=== PATIENT | female | born 1935 | race Caucasian/White ===

== ENCOUNTER 2017-07-20 14:13 | Emergency (ER) | payer OTHER ==
[~2017-07-20] VITALS: Ht 172.7 cm; Wt 59.0 kg
[~2017-07-20 14:13] MED LIST: ALPR.25 PO; AMLO5 PO; Amoxicillin500 MG PO; CEFP200 PO; CEPH500 PO; CITRACAL + D M1 EACH PO; CLON.5 PO; CONEST.3; FEXO60 PO; FLUSAL115 IH; HYDCHL25; HYDHCL25 PO; Keflex500 MG PO; LISHYD2012 PO; LISHYD2025 PO; LISI20 PO; LOPE2C PO; LOSA50 PO; METO50ER PO; NEOPOLDEXS BOTHEYES; NITR100CA PO; PANT40 PO; POTASSIUM CHLO20 MEQ PO; POTASSIUM99 M1; POTCHL20ER PO; PRED20 PO; Pyridium200 MG PO; TRAACE PO
[2017-07-20 14:51] LABS: Source, Urine Catheter
[2017-07-20 15:02] LABS: Appearance, Urine Cloudy (Clear); Blood, Urine 5+ (Neg); Color, Urine Amber (P-Yellow); Glucose Qualitative, Urine Neg (Neg); Ketones, Urine 1+ (Neg); Leukocyte Esterase, Urine 1+ (Neg); Nitrite, Urine Neg (Neg); Protein, Urine 2+ (Neg); Urobilinogen, Urine 3+ (Normal)
[2017-07-20 15:06] LABS: BASOPHILS ABSOLUTE AUTO 0.03 K/mm3 (0.00-0.23); BASOPHILS PERCENT AUTO 0 % (0-2); EOSINOPHILS ABSOLUTE AUTO 0.08 K/mm3 (0.00-0.68); EOSINOPHILS PERCENT AUTO 1 % (0-6); Hemoglobin 10.3 g/dL (11.5-16.0); IMMATURE GRAN ABSOLUTE AUTO 0.02 K/mm3 (0.00-0.10); IMMATURE GRAN PERCENT AUTO 0 % (0-1); LYMPHOCYTES ABSOLUTE AUTO 2.97 K/mm3 (0.84-5.20); LYMPHOCYTES PERCENT AUTO 28 % (21-46); MONOCYTES ABSOLUTE AUTO 1.38 K/mm3 (0.16-1.47); MONOCYTES PERCENT AUTO 13 % (4-13); Mean Corpuscular HGB 36.8 pg (26.0-34.0); Mean Corpuscular HGB Conc 34.3 g/dL (31.5-36.5); Mean Corpuscular Volume 107 fL (80-100); Mean Platelet Volume 9.5 fL (9.1-12.4); NEUTROPHILS ABSOLUTE AUTO 6.15 K/mm3 (1.96-9.15); NEUTROPHILS PERCENT AUTO 58 % (41-73); Platelet Count 244 K/mm3 (150-400); RDW Standard Deviation 54.4 fL (35.1-46.3); White Blood Cell Count 10.63 K/mm3 (4.00-11.30)
[2017-07-20 15:16] LABS: Bilirubin, Urine 2+ (Neg)
[2017-07-20 15:20] LABS: Bacteria Many /hpf; Hyaline Casts 0-2 /lpf (0-2); Squamous Epithelial Cells Few /hpf (Few); White Blood Cells, Urine 0-2 /hpf (0-5)
[2017-07-20 15:22] LABS: Albumin, Blood 1.9 g/dL (3.4-5.0); Albumin/Globulin Ratio 0.5 (0.8-1.8); Bilirubin, Total 3.2 mg/dL (0.1-1.0); Calcium, Blood 6.6 mg/dL (8.5-10.1); Creatinine, Blood 1.79 mg/dL (0.40-1.00); Total Protein, Blood 5.9 g/dL (6.4-8.2)
== END 2017-07-20 17:18 | disposition home or self-care (01) ==
LOC: ER 14:13
PROVIDERS: Emergency Medicine
DX: N19 Unspecified kidney failure (principal); I10 Essential (primary) hypertension; Z88.5 Allergy status to narcotic agent; Z79.899 Other long term (current) drug therapy; Z90.49 Acquired absence of other specified parts of digestive tract; Z90.710 Acquired absence of both cervix and uterus
CPT/HCPCS: 36415; 71046; 80053; 81001; 85025; 87086; 93005; 93010; 96360; 99283; J7030; P9612

== ENCOUNTER → 2017-07-31 | Outpatient (CLI) | payer OTHER ==
[~2017-07-31] MED LIST changes: +AMLO5; +Abilify2 MG; +CEFP200; +CIPR500; +CYAN500 PO; +HYDACE25S PR; +HYDCOR2.5C PR; +HYDR25SUP PR; +Hair, Skin & N1 EACH PO; +LOPE2C; +LOSA50; +METR500; +Miralax17 GM PO; +NEOPOLDEXS; +OMEPRAZOLE DR 20 MG; +ONDA4; +PARO10; +POTCHL20ER; +Pantoprazole So40 MG; +Pyridium200 MG; +TEMA15; +Ultram50 MG PO; +Zofran Odt4 MG PO
[2017-07-31 17:40] LABS: BASOPHILS ABSOLUTE AUTO 0.14 K/mm3 (0.00-0.23); BASOPHILS PERCENT AUTO 1 % (0-2); EOSINOPHILS ABSOLUTE AUTO 0.08 K/mm3 (0.00-0.68); EOSINOPHILS PERCENT AUTO 1 % (0-6); Hematocrit 38.2 % (33.0-51.0); Hemoglobin 12.8 g/dL (11.5-16.0); IMMATURE GRAN ABSOLUTE AUTO 0.04 K/mm3 (0.00-0.10); IMMATURE GRAN PERCENT AUTO 0 % (0-1); LYMPHOCYTES ABSOLUTE AUTO 3.77 K/mm3 (0.84-5.20); LYMPHOCYTES PERCENT AUTO 33 % (21-46); MONOCYTES ABSOLUTE AUTO 0.87 K/mm3 (0.16-1.47); MONOCYTES PERCENT AUTO 8 % (4-13); Mean Corpuscular HGB 37.2 pg (26.0-34.0); Mean Corpuscular HGB Conc 33.5 g/dL (31.5-36.5); Mean Platelet Volume 9.9 fL (9.1-12.4); NEUTROPHILS ABSOLUTE AUTO 6.71 K/mm3 (1.96-9.15); NEUTROPHILS PERCENT AUTO 58 % (41-73); Platelet Count 353 K/mm3 (150-400); RDW Coefficient Variation 15.7 % (11.7-14.2); RDW Standard Deviation 63.5 fL (35.1-46.3); Red Blood Cell Count 3.44 M/mm3 (3.80-5.20); White Blood Cell Count 11.61 K/mm3 (4.00-11.30)
[2017-07-31 17:53] LABS: Mean Corpuscular Volume 111 fL (80-100)
[2017-07-31 17:54] LABS: Albumin, Blood 1.9 g/dL (3.4-5.0); Albumin/Globulin Ratio 0.4 (0.8-1.8); Bilirubin, Total 3.1 mg/dL (0.1-1.0); Bun/Creatinine Ratio 5.6 (12.0-20.0); Calcium, Blood 7.3 mg/dL (8.5-10.1); Creatinine, Blood 1.24 mg/dL (0.40-1.00); Globulin, Blood 4.8 g/dL (2.2-4.0); Potassium, Blood 3.2 mmol/L (3.5-5.5); Total Protein, Blood 6.7 g/dL (6.4-8.2)
== END | disposition home or self-care (01) ==
LOC: LAB EV 17:37
PROVIDERS: Physician Assistant
DX: E86.0 Dehydration (principal)
CPT/HCPCS: 80053; 85025

== ENCOUNTER 2017-08-01 16:03 | Emergency (ER) | payer OTHER ==
[~2017-08-01] VITALS: Ht 172.7 cm; Wt 48.1 kg
[~2017-08-01 16:03] MED LIST changes: -AMLO5; -Abilify2 MG; -CEFP200; -CIPR500; -CYAN500 PO; -HYDACE25S PR; -HYDCOR2.5C PR; -HYDR25SUP PR; -Hair, Skin & N1 EACH PO; -LOPE2C; -LOSA50; -METR500; -Miralax17 GM PO; -NEOPOLDEXS; -OMEPRAZOLE DR 20 MG; -ONDA4; -PARO10; -POTCHL20ER; -Pantoprazole So40 MG; -Pyridium200 MG; -TEMA15; -Ultram50 MG PO; -Zofran Odt4 MG PO
[2017-08-01 17:51] LABS: Source, Urine Catheter
[2017-08-01 18:17] LABS: Appearance, Urine Cloudy (Clear); Blood, Urine 4+ (Neg); Color, Urine Amber (P-Yellow); Glucose Qualitative, Urine Neg (Neg); Ketones, Urine 1+ (Neg); Leukocyte Esterase, Urine 3+ (Neg); Nitrite, Urine Pos (Neg); Protein, Urine 3+ (Neg); Specific Gravity, Urine 1.015 (1.003-1.022); Urobilinogen, Urine 3+ (Normal)
[2017-08-01 18:45] LABS: Bilirubin, Urine 2+ (Neg)
[2017-08-01 18:46] LABS: White Blood Cells, Urine TNTC /hpf (0-5)
[2017-08-01 18:47] LABS: Bacteria Many /hpf; Squamous Epithelial Cells Few /hpf (Few)
== END 2017-08-01 19:56 | disposition home or self-care (01) ==
LOC: ER 16:03
PROVIDERS: Nurse Practitioner Family
DX: N39.0 Urinary tract infection, site not specified (principal); I10 Essential (primary) hypertension; Z88.5 Allergy status to narcotic agent; Z90.49 Acquired absence of other specified parts of digestive tract; Z90.710 Acquired absence of both cervix and uterus
CPT/HCPCS: 36415; 81001; 87077; 87086; 87186; 96360; 99284; J7030; P9612

== ENCOUNTER 2017-09-25 14:06 | Emergency (ER) | payer OTHER ==
[~2017-09-25] VITALS: Ht 172.7 cm; Wt 68.0 kg
[2017-09-25] MEDS ORDERED: Abilify2 MG (14:43)
[2017-09-25] MEDS ORDERED: OMEPRAZOLE DR 20 MG (14:43)
[2017-09-25] MEDS ORDERED: POTCHL20ER (14:44)
[2017-09-25] MEDS ORDERED: PARO10 (14:44)
[2017-09-25] MEDS ORDERED: CEFP200 (14:44)
[2017-09-25] MEDS ORDERED: METR500 (14:44)
[2017-09-25] MEDS ORDERED: ONDA4 (14:44)
[2017-09-25] MEDS ORDERED: LOSA50 (14:44)
[2017-09-25] MEDS ORDERED: TEMA15 (14:44)
[2017-09-25] MEDS ORDERED: NEOPOLDEXS (14:44)
[2017-09-25] MEDS ORDERED: Pyridium200 MG (14:44)
[2017-09-25] MEDS ORDERED: Pantoprazole So40 MG (14:44)
[2017-09-25] MEDS ORDERED: LOPE2C (14:44)
[2017-09-25] MEDS ORDERED: AMLO5 (14:44)
[2017-09-25] MEDS ORDERED: CIPR500 (14:44)
[2017-09-25] MEDS ORDERED: HYDR25SUP PR (14:55)
[2017-09-25] MEDS ORDERED: Ultram50 MG PO (15:18)
== END 2017-09-25 15:03 | disposition home or self-care (01) ==
LOC: ER 14:06
DX: K64.9 Unspecified hemorrhoids (principal); I10 Essential (primary) hypertension
CPT/HCPCS: 99283

== ENCOUNTER 2017-10-06 12:02 | Emergency (ER) | payer OTHER ==
[~2017-10-06] VITALS: Ht 177.8 cm; Wt 45.4 kg
[~2017-10-06 12:02] MED LIST changes: +AMLO5; +Abilify2 MG; +CEFP200; +CIPR500; +HYDR25SUP PR; +LOPE2C; +LOSA50; +METR500; +NEOPOLDEXS; +OMEPRAZOLE DR 20 MG; +ONDA4; +PARO10; +POTCHL20ER; +Pantoprazole So40 MG; +Pyridium200 MG; +TEMA15; +Ultram50 MG PO
[2017-10-06] MEDS ORDERED: Hair, Skin & N1 EACH PO (15:47)
[2017-10-06] MEDS ORDERED: CYAN500 PO (15:48)
[2017-10-06 16:15] LABS: Calcium, Ionized (POC) 0.78 mmol/L (1.10-1.46); Chloride (POC) 105 mmol/L (98-108); Creatinine (POC) 0.5 mg/dL (0.6-1.0); Glucose (ISTAT POC) 161 mg/dL (70-99); Hemoglobin (POC) 12.2 g/dL (12.0-16.0); Sodium (POC) 139 mmol/L (135-148); Total CO2 (POC) 26 mmol/L (21-32)
[2017-10-06] MEDS ORDERED: Miralax17 GM PO (17:41)
[2017-10-06] MEDS ORDERED: HYDCOR2.5C PR (17:41)
[2017-10-06] MEDS ORDERED: HYDACE25S PR (17:42)
== END 2017-10-06 18:03 | disposition home or self-care (01) ==
LOC: ER 12:02
PROVIDERS: Physician Assistant
DX: K64.4 Residual hemorrhoidal skin tags (principal); K59.00 Constipation, unspecified; Z88.5 Allergy status to narcotic agent; Z79.899 Other long term (current) drug therapy; I10 Essential (primary) hypertension
CPT/HCPCS: 36415; 72193; 80047; 85014; 99284; Q9967

== ENCOUNTER 2017-12-09 18:04 | Emergency (ER) | payer OTHER ==
[~2017-12-09] VITALS: Ht 172.7 cm; Wt 68.0 kg
[~2017-12-09 18:04] MED LIST changes: +CYAN500 PO; +HYDACE25S PR; +HYDCOR2.5C PR; +Hair, Skin & N1 EACH PO; +Miralax17 GM PO
[2017-12-09 18:50] LABS: BASOPHILS ABSOLUTE AUTO 0.06 K/mm3 (0.00-0.23); BASOPHILS PERCENT AUTO 1 % (0-2); EOSINOPHILS ABSOLUTE AUTO 0.09 K/mm3 (0.00-0.68); EOSINOPHILS PERCENT AUTO 1 % (0-6); Hematocrit 32.6 % (33.0-51.0); Hemoglobin 10.7 g/dL (11.5-16.0); IMMATURE GRAN ABSOLUTE AUTO 0.03 K/mm3 (0.00-0.10); IMMATURE GRAN PERCENT AUTO 0 % (0-1); LYMPHOCYTES ABSOLUTE AUTO 2.49 K/mm3 (0.84-5.20); LYMPHOCYTES PERCENT AUTO 24 % (21-46); MONOCYTES ABSOLUTE AUTO 0.99 K/mm3 (0.16-1.47); MONOCYTES PERCENT AUTO 10 % (4-13); Mean Corpuscular HGB 32.9 pg (26.0-34.0); Mean Corpuscular HGB Conc 32.8 g/dL (31.5-36.5); Mean Corpuscular Volume 100 fL (80-100); Mean Platelet Volume 9.6 fL (9.1-12.4); NEUTROPHILS ABSOLUTE AUTO 6.63 K/mm3 (1.96-9.15); NEUTROPHILS PERCENT AUTO 64 % (41-73); Platelet Count 380 K/mm3 (150-400); RDW Coefficient Variation 15.7 % (11.7-14.2); RDW Standard Deviation 57.6 fL (35.1-46.3); Red Blood Cell Count 3.25 M/mm3 (3.80-5.20); White Blood Cell Count 10.29 K/mm3 (4.00-11.30)
[2017-12-09 19:06] LABS: Alanine Aminotransfer (ALT/SGP 9 U/L (12-78); Albumin, Blood 1.1 g/dL (3.4-5.0); Albumin/Globulin Ratio 0.2 (0.8-1.8); Alk Phos 113 U/L (50-136); Anion Gap 10 mmol/L (6-16); Aspartate Aminotrans (AST/SGOT 28 U/L (12-37); Bilirubin, Total 0.4 mg/dL (0.1-1.0); Blood Urea Nitrogen 9 mg/dL (8-24); Bun/Creatinine Ratio 15.6 (12.0-20.0); CO2, Blood 24 mmol/L (21-32); Calcium, Blood 7.7 mg/dL (8.5-10.1); Chloride, Blood 108 mmol/L (98-108); Creatinine, Blood 0.58 mg/dL (0.40-1.00); Glomerular Filtration Rate >60 (60-); Glucose, Blood 118 mg/dL (70-99); Potassium, Blood 3.1 mmol/L (3.5-5.5); Sodium, Blood 142 mmol/L (136-145); Total Protein, Blood 6.1 g/dL (6.4-8.2)
[2017-12-09] MEDS ORDERED: Zofran Odt4 MG PO (20:03)
== END 2017-12-09 20:25 | disposition home or self-care (01) ==
LOC: ER 18:04
PROVIDERS: Emergency Medicine
DX: E87.6 Hypokalemia (principal); R64 Cachexia; Z68.22 Body mass index [BMI] 22.0-22.9, adult; E83.42 Hypomagnesemia; E83.51 Hypocalcemia; K52.9 Noninfective gastroenteritis and colitis, unspecified; Z88.5 Allergy status to narcotic agent; I10 Essential (primary) hypertension
CPT/HCPCS: 36415; 71046; 80053; 83690; 85025; 93005; 93010

== ENCOUNTER 2019-01-21 19:41 | Emergency (ER) | payer OTHER ==
[~2019-01-21] VITALS: Ht 152.4 cm; Wt 52.2 kg
[~2019-01-21 19:41] MED LIST changes: +Zofran Odt4 MG PO
[2019-01-21 20:22] LABS: Source, Urine Voided
[2019-01-21 20:26] LABS: Bilirubin, Urine Neg (Neg); Blood, Urine 3+ (Neg); Glucose Qualitative, Urine Neg (Neg); Ketones, Urine Neg (Neg); Leukocyte Esterase, Urine 3+ (Neg); Nitrite, Urine Neg (Neg); Protein, Urine 2+ (Neg); Specific Gravity, Urine 1.005 (1.003-1.022); Urobilinogen, Urine NORM (Normal)
[2019-01-21 20:32] LABS: Appearance, Urine Cloudy (Clear); Color, Urine Yellow (P-Yellow)
[2019-01-21 20:33] LABS: Bacteria Many /hpf; Red Blood Cells, Urine 50-100 /hpf (0-2); Squamous Epithelial Cells Few /hpf (Few); White Blood Cells, Urine TNTC /hpf (0-5)
[2019-01-21 20:44] LABS: BASOPHILS ABSOLUTE AUTO 0.08 K/mm3 (0.00-0.23); BASOPHILS PERCENT AUTO 1 % (0-2); EOSINOPHILS ABSOLUTE AUTO 0.11 K/mm3 (0.00-0.68); EOSINOPHILS PERCENT AUTO 1 % (0-6); Hematocrit 40.5 % (33.0-51.0); Hemoglobin 14.3 g/dL (11.5-16.0); IMMATURE GRAN ABSOLUTE AUTO 0.02 K/mm3 (0.00-0.10); IMMATURE GRAN PERCENT AUTO 0 % (0-1); LYMPHOCYTES ABSOLUTE AUTO 4.88 K/mm3 (0.84-5.20); LYMPHOCYTES PERCENT AUTO 50 % (21-46); MONOCYTES ABSOLUTE AUTO 0.61 K/mm3 (0.16-1.47); MONOCYTES PERCENT AUTO 6 % (4-13); Mean Corpuscular HGB 36.9 pg (26.0-34.0); Mean Corpuscular HGB Conc 35.3 g/dL (31.5-36.5); Mean Corpuscular Volume 104 fL (80-100); Mean Platelet Volume 8.8 fL (9.1-12.4); NEUTROPHILS ABSOLUTE AUTO 4.16 K/mm3 (1.96-9.15); NEUTROPHILS PERCENT AUTO 42 % (41-73); Platelet Count 350 K/mm3 (150-400); RDW Coefficient Variation 15.9 % (11.7-14.2); RDW Standard Deviation 61.7 fL (35.1-46.3); Red Blood Cell Count 3.88 M/mm3 (3.80-5.20); White Blood Cell Count 9.86 K/mm3 (4.00-11.30)
[2019-01-21 21:08] LABS: Magnesium, Blood 1.6 mg/dL (1.6-2.4)
[2019-01-21 21:09] LABS: Alanine Aminotransfer (ALT/SGP 29 U/L (12-78); Albumin, Blood 3.1 g/dL (3.4-5.0); Albumin/Globulin Ratio 0.7 (0.8-1.8); Alk Phos 242 U/L (50-136); Anion Gap 10 mmol/L (6-16); Aspartate Aminotrans (AST/SGOT 117 U/L (12-37); Bilirubin, Total 0.4 mg/dL (0.1-1.0); Blood Urea Nitrogen 5 mg/dL (8-24); Bun/Creatinine Ratio 9.9 (12.0-20.0); CO2, Blood 25 mmol/L (21-32); Calcium, Blood 8.2 mg/dL (8.5-10.1); Chloride, Blood 98 mmol/L (98-108); Globulin, Blood 4.2 g/dL (2.2-4.0); Glomerular Filtration Rate >60 (60-); Glucose, Blood 107 mg/dL (70-99); Potassium, Blood 2.9 mmol/L (3.5-5.5); Sodium, Blood 133 mmol/L (136-145); Total Protein, Blood 7.3 g/dL (6.4-8.2)
[2019-01-21 21:12] LABS: International Normalized Ratio 1.05; Prothrombin Time Results 11.1 Sec (9.7-11.5)
[2019-01-21 21:25] LABS: Ethanol (Alcohol), Blood, Med 294 mg/dL
[2019-01-21] MEDS ORDERED: K-Dur10 MEQ PO (23:06)
[2019-01-21 23:12] LABS: Campylobacter Sp Not Detected (NOT DETECT); Plesiomonas Shigelloides Not Detected (NOT DETECT); Salmonella Sp Not Detected (NOT DETECT); Vibrio Cholerae Not Detected (NOT DETECT); Vibrio Sp Not Detected (NOT DETECT); Yersinia Enterocolitica Not Detected (NOT DETECT)
[2019-01-21 23:13] LABS: Adenovirus F 40/41 Not Detected (NOT DETECT); Astrovirus Not Detected (NOT DETECT); Cryptosporidium Not Detected (NOT DETECT); Cyclospora Cayetanensis Not Detected (NOT DETECT); E. Coli O157 Not Detected (NOT DETECT); Entamoeba Histolytica Not Detected (NOT DETECT); Enteroaggregative E. coli-EAEC Not Detected (NOT DETECT); Enteropathogenic E. coli-EPEC Not Detected (NOT DETECT); Enterotoxigenic E. coli-ETEC Not Detected (NOT DETECT); Giardia Lamblia Not Detected (NOT DETECT); Norovirus GI/GII Not Detected (NOT DETECT); Rotavirus A Not Detected (NOT DETECT); Sapovirus Not Detected (NOT DETECT); Shiga Toxin-prod E. coli-STEC Not Detected (NOT DETECT); Shigella/Enteroin E. coli-EIEC Not Detected (NOT DETECT)
[2019-05-10] MEDS ORDERED: CEPH500 PO ×2 (23:13→23:26)
[2019-05-10] MEDS ORDERED: K-Dur 20 meq T20 MEQ PO (23:13)
[2019-05-10] MEDS ORDERED: Kaon-Cl40 MEQ/15 PO (23:24)
== END 2019-01-21 23:35 | disposition home or self-care (01) ==
LOC: ER 19:41
PROVIDERS: Emergency Medicine
DX: F10.129 Alcohol abuse with intoxication, unspecified (principal); Y90.8 Blood alcohol level of 240 mg/100 ml or more; R53.1 Weakness; E87.6 Hypokalemia; R19.7 Diarrhea, unspecified; I10 Essential (primary) hypertension; Z88.5 Allergy status to narcotic agent
CPT/HCPCS: 0097U; 70450; 71045; 80053; 81001; 82140; 83735; 85025; 85610; 87077; 87086; 87186; 93005; 93010; 99285-25; G0480; J3411; J3475; J7042

== ENCOUNTER 2019-02-20 08:43 | Inpatient (IN) | payer OTHER ==
[~2019-02-20] VITALS: Ht 172.7 cm; Wt 61.0 kg
[~2019-02-20 08:43] MED LIST changes: +K-Dur10 MEQ PO
[2019-02-20 09:10] LABS: Chloride (POC) 98 mmol/L (98-108); Creatinine (POC) 1.5 mg/dL (0.6-1.0); Glucose (ISTAT POC) 46 mg/dL (70-99); Hemoglobin (POC) 16.3 g/dL (12.0-16.0); Potassium (POC) 4.1 mmol/L (3.5-5.5); Sodium (POC) 135 mmol/L (135-148); Total CO2 (POC) 13 mmol/L (21-32)
[2019-02-20 09:38] LABS: Hematocrit 45.7 % (33.0-51.0); Hemoglobin 14.5 g/dL (11.5-16.0); Mean Corpuscular HGB 38.5 pg (26.0-34.0); Mean Corpuscular HGB Conc 31.7 g/dL (31.5-36.5); Mean Corpuscular Volume 121 fL (80-100); Mean Platelet Volume 9.9 fL (9.1-12.4); Platelet Count 327 K/mm3 (150-400); RDW Standard Deviation 68.7 fL (35.1-46.3); Red Blood Cell Count 3.77 M/mm3 (3.80-5.20); White Blood Cell Count 22.66 K/mm3 (4.00-11.30)
[2019-02-20 09:56] LABS: BAND PERCENT MAN 8 % (0-8); BASOPHILS ABSOLUTE MAN 0.22 K/mm3 (0.00-0.23); BASOPHILS PERCENT MAN 1 % (0-2); EOSINOPHILS PERCENT MAN 0 % (0-6); LYMPHOCYTES ABSOLUTE MAN 1.58 K/mm3 (0.84-5.20); LYMPHOCYTES PERCENT MAN 7 % (21-46); MONOCYTES ABSOLUTE MAN 0.22 K/mm3 (0.16-1.47); MONOCYTES PERCENT MAN 1 % (4-13); NEUTROPHILS ABSOLUTE MAN 20.62 K/mm3 (1.96-9.15); SEG NEUTROPHILS PERCENT MAN 83 % (41-73); TOTAL CELLS COUNTED 100
[2019-02-20 10:01] LABS: Free Thyroxine 0.75 ng/dL (0.70-1.60); Troponin I 0.056 ng/mL (0.000-0.040)
[2019-02-20 10:03] LABS: Thyroid Stimulating Hormone 1.15 uIU/mL (0.360-4.800)
[2019-02-20 10:16] LABS: Albumin, Blood 3.4 g/dL (3.4-5.0); Albumin/Globulin Ratio 0.8 (0.8-1.8); Bilirubin, Total 1.6 mg/dL (0.1-1.0); Bun/Creatinine Ratio 8.3 (12.0-20.0); Calcium, Blood 8.6 mg/dL (8.5-10.1); Creatinine, Blood 1.33 mg/dL (0.40-1.00); Globulin, Blood 4.3 g/dL (2.2-4.0); Potassium, Blood 4.6 mmol/L (3.5-5.5); Total Protein, Blood 7.7 g/dL (6.4-8.2)
[2019-02-20 10:32] LABS: Source, Urine Clean Catch
[2019-02-20 10:37] LABS: Bilirubin, Urine Neg (Neg); Blood, Urine 3+ (Neg); Glucose Qualitative, Urine Neg (Neg); Ketones, Urine Neg (Neg); Leukocyte Esterase, Urine Neg (Neg); Nitrite, Urine Neg (Neg); Protein, Urine 1+ (Neg); Specific Gravity, Urine 1.015 (1.003-1.022); Urobilinogen, Urine NORM (Normal)
[2019-02-20 10:46] LABS: Appearance, Urine Clear (Clear); Color, Urine Yellow (P-Yellow)
[2019-02-20 10:47] LABS: Bacteria Not Seen /hpf; Mucus Light (0-Heavy); Red Blood Cells, Urine 0-2 /hpf (0-2); Squamous Epithelial Cells Not Seen /hpf (Few); White Blood Cells, Urine Not Seen /hpf (0-5)
[2019-02-20 10:51] LABS: PCO2 Arterial 23.5 mmHg (35-45); PO2 Arterial 73.1 mmHg (80-100)
[2019-02-20 10:55] LABS: pH Blood Arterial 7.11 (7.35-7.45)
--- NOTE | 2019-02-20 14:00 | NUR ---
INITIAL ASSESSMENT PATIENT ARRIVED TO UNIT AT 1345. PATIENT ALERT AND ORIENTED X 4, HOWEVER SEEMS FORGETFUL AT TIMES. PATIENT SLIGHTLY ANXIOUS. PATIENT CONTINUES TO ASK FOR WATER EVEN THOUGH SHE HAS BEEN INFORMED THAT SHE IS NPO AND WHY IT IS IMPORTANT. PATIENT GIVEN WATER SWABS. PATIENT AFEBRILE. PATIENT COMPLAINS OF SLIGHT SORE THROAT. PATIENT WEAK BUT ABLE TO MOVE ALL EXTREMITIES. PATIENT STATES SHE USES A WALKER AT HOME. DAUGHTER REPORTS THAT PATIENT HAD A RECENT FALL AT HOME. PATIENT SATTING 90% AND GREATER ON 10 L OXYMIZER. LUNGS CLEAR IN UPPER LOBES. CRACKLES NOTED IN LOWER LOBES. PATIENT STATES SHE HAS A MOIST, PRODUCTIVE COUGH BUT DOES NOT KNOW WHAT THE SPUTUM LOOKS LIKE SHE SWALLOWS IT. PATIENT REMOVES O2 AT TIMES; DESATS QUICKLY. PATIENT SOB WITH EXERTION. PATIENT IN ST, HR 120S TO 130S. SBP IN THE 1-TEENS. NO EDEMA NOTED. PATIENT DENIES NAUSEA. ABDOMEN MILDLY DISTENDED, NONTENDER, WITH NORMOACTIVE BS. PATIENT HAD LARGE, LOOSE BM IN ER. PATIENT NPO. NORRIS DRAINING ADALBERTO, CLOUDY COLORED URINE. BLADDER SCAN PERFORMED ABD CT SHOWED THAT NORRIS MAY NOT BE WORKING. NORRIS IS DRAINING AND BLADDER SCAN SHOWED 0 MLS IN BLADDER. SKIN IS FRAGILE AND COOL. PATIENT HAS SCATTERED BRUISES T/O. SCAB NOTED ON NOSE. BLOOD SUGAR OF 246. D10 DRIP DC'D AND SODIUM BICARB 1/2 NS STARTED AT 100 MLS/ HOUR. DR. BOSE STATED TO START NS AT 75 X 1 BAG AFTER SODIUM BICARB INFUSION COMPLETE. PATIENT REPORTS THAT SHE HAS LOST AROUND 80 POUNDS "A FEW WEEKS AGO" AND PATIENT STOPPED EATING. PATIENT LIVES ALONE BUT DOES HAVE RELATIVES IN THE AREA. PATIENT DENIES FREQUENT ALCOHOL USE BUT RECEIVED REPORT THAT SHE DOES DRINK DAILY AND THAT HER DRINKING HAS INCREASED SINCE HER PASSED. PATIENT ORIENTED TO ROOM, UNIT, CALL LIGHT. BED LOW, CALL LIGHT IN REACH. PATIENT'S NEPHEW AND DAUGHTER IN ROOM WITH PATIENT AT THIS TIME.
--- NOTE | 2019-02-20 15:37 | NUR ---
DR. BOSE CALLED TO INFORM ABOUT LACTIC ACID OF 7.9. ALSO INFORMED THAT SBP REMAINS IN THE 80S TO 90S AND HR IN THE 120S. INFORMED THAT LUNGS CLEAR IN UPPER LOBES, WITH CRACKLES IN LOWER LOBES UPON AUSCULTATION. ORDER RECEIVED FOR 500 ML NS BOLUS.
--- NOTE | 2019-02-20 16:39 | NUR ---
500 CC NS BOLUS STARTED FOR SBP 80S TO 90S AND HR IN THE 120S. BLOOD SUGAR OF 228. URINE CULTURE AND RECTAL SWAB SENT TO LAB TO CLEAR PATIENT FROM PAST HISTORY OF ESBL IN URINE. NO COMPLAINTS AT THIS TIME. NO OTHER ACUTE CHANGES TO NOTE ON AT THIS TIME. WILL CONTINUE TO MONITOR.
[2019-02-20 18:00] LABS: Beta-hydroxybutyrate 40.5 mg/dL (0.2-2.8); Bun/Creatinine Ratio 9.9 (12.0-20.0); Creatinine, Blood 1.21 mg/dL (0.40-1.00); Potassium, Blood 3.6 mmol/L (3.5-5.5); Troponin I 0.116 ng/mL (0.000-0.040)
--- NOTE | 2019-02-20 18:00 | NUR ---
DR. BOSE CALL DR. BOSE TO INFORM HIM OF ONGOING SBP'S 80-90'S. ORDERS RECEIVED FOR ADDITIONAL 250ML BOLUS AND PLACE PICC LINE. ALSO RE-CHECK LACTIC ACID 6 HOURS AFTER PREVIOUS LEVEL. PRISCA ODONNELL NOTIFIED TO PLACE PICC LINE.
[2019-02-20 18:14] LABS: Creatine Kinase MB 4.6 ng/mL (0.0-3.6); Creatine Kinase MB Index 1.8 (0.0-4.0)
--- NOTE | 2019-02-20 19:26 | NUR ---
SHIFT SUMMARY PATIENT REMAINED ALERT AND ORIENTED X 4, AFEBRILE. PATIENT STATES THAT SHE IS FEELING QUITE A BIT BETTER. PATIENT IS INDEPENDENT IN BED. RESP WNL. PATIENT HAS REMAINED IN SR TO ST, HR 90S TO LOW 100S. BP HAS REMAINED STABLE. PATIENT CONTINUES TO DENY NAUSEA. WNL. SKIN WNL. INSULIN DRIP CURRENTLY INFUSING AT 4 UNITS/ HOUR, NS REMAINS AT 125 MLS/ HOUR. NO OTHER ACUTE CHANGES TO NOTE ON. FAMILY REMAINS VISITING IN ROOM. BED LOW, CALL LIGHT IN REACH. REPORT HAS BEEN GIVEN TO ASSUMING BUSINESS SYSTEMS ADVISOR NURSE.
--- NOTE | 2019-02-20 19:46 | NUR ---
SHIFT SUMMARY PATIENT REMAINED ALERT AND ORIENTED, HOWEVER FORGETFUL. PATIENT CONTINUED TO ASK FOR WATER, DESPITE BEING EXPLAINED TO THAT SHE IS NPO AT THIS TIME. WATER SWABS REMAINED BEING GIVEN. PATIENT ANXIOUS AT TIMES. PATIENT AFEBRILE. PATIENT REMAINED SATTING 90% AND GREATER ON 10 L OXYMIZER. PATIENT TOOK OFF O2 OCCASIONALLY AND DESATTED QUICKLY. PATIENT CONTINUED TO HAVE MOIST COUGH. PATIENT REMAINED IN ST. HR UP TO 130S. HR DECREASED TO 1-TEENS AFTER MORE FLUIDS GIVEN. SBP 80S TO 90S. 500 CC NS BOLUS, THEN 250 CC BOLUS AND PICC LINE INSERTED. PATIENT HAS HAD NO COMPLAINTS OF NAUSEA. PATIENT DID NOT HAVE BM THIS SHIFT. NORRIS DRAINING ADALBERTO COLORED, CLOUDY URINE. NS TKO FOR ANTIBIOTIC. SODIUM BICARB INFUSING AT 100 MLS/ HOUR. NS AT 75 MLS/ HOUR TO INFUSE WHEN BICARB COMPLETE. URINE CULTURE AND RECTAL SWAB SENT TO CLEAR ESBL. BLOOD SUGARS HAVE REMAINED IN THE 200S. PATIENT HAS NO COMPLAINTS AT THIS TIME. BED LOW, CALL LIGHT IN REACH. REPORT HAS BEEN GIVEN TO ASSUMING METAL CLEANER NURSE.
--- NOTE | 2019-02-20 20:51 | NUR ---
PATIENT RESTING QUIETLY IN BED AWAKENS TO SLIGHT STIMULI, ANSWERING QUESTIONS APPROPRIATELY AND FOLLOWING DIRECTIONS. HYPOTENSION CONTINUES DOCTOR AGSTEN NOTIFIED OF CONTINUED HYPOTENSION, LEVOPHED DRIP ORDERED. PICC LINE PLACED TO RIGHT UPPER ARM AT CHANGE OF SHIFT, OK TO USE LINE PER BELLE COPE, AND DOCTOR JUSTINE.
[2019-02-21 01:50] LABS: Troponin I 0.156 ng/mL (0.000-0.040)
[2019-02-21 02:04] LABS: Creatine Kinase MB Index 1.2 (0.0-4.0)
--- NOTE | 2019-02-21 02:35 | NUR ---
DOCTOR JUSTINE NOTIFIED OF CARDIAC ENZYMES CONTINUE TO RISE. PATIENT HAS NO C/O PAIN OR PRESSURE. LEVOPHED DRIP CONTINUES AT 5 MCG. PLAN TO RECHECK CARDIAC ENZYMES AGAIN IN 8HR.
[2019-02-21 04:31] LABS: Hematocrit 32.5 % (33.0-51.0); Hemoglobin 11.4 g/dL (11.5-16.0); Mean Corpuscular HGB 38.4 pg (26.0-34.0); Mean Corpuscular HGB Conc 35.1 g/dL (31.5-36.5); Mean Platelet Volume 9.6 fL (9.1-12.4); Platelet Count 199 K/mm3 (150-400); RDW Coefficient Variation 14.4 % (11.7-14.2); Red Blood Cell Count 2.97 M/mm3 (3.80-5.20); White Blood Cell Count 23.79 K/mm3 (4.00-11.30)
[2019-02-21 04:36] LABS: Mean Corpuscular Volume 109 fL (80-100)
[2019-02-21 05:08] LABS: Albumin, Blood 2.2 g/dL (3.4-5.0); Albumin/Globulin Ratio 0.7 (0.8-1.8); Bilirubin, Total 0.9 mg/dL (0.1-1.0); Bun/Creatinine Ratio 13.4 (12.0-20.0); Calcium, Blood 6.9 mg/dL (8.5-10.1); Creatinine, Blood 0.97 mg/dL (0.40-1.00); Globulin, Blood 3.1 g/dL (2.2-4.0)
[2019-02-21 05:32] LABS: Total Protein, Blood 5.3 g/dL (6.4-8.2)
--- NOTE | 2019-02-21 06:18 | NUR ---
SUMMARY PATIENT RESTING QUIETLY T/O NIGHT, AWAKING EASILY TO SLIGHT STIMULI. NO C/O T/O NIGHT. LEVOPHED TITRATED TO 3 MCG FOR HYPOTENSION. MOIST COUGH CONTINUES, WITH CRACKLES IN BASES. OXYGEN TITRATED DOWN TO 8L/OXY. PATIENT ABLE TO REPOSITION SELF IN BED FOR COMFORT.
--- NOTE | 2019-02-21 09:41 | NUR ---
ECHOCARDIOGRAM COMPLETED
[2019-02-21 09:44] LABS: Troponin I 0.167 ng/mL (0.000-0.040)
--- NOTE | 2019-02-21 09:46 | NUR ---
0730: CARE ASSUMED, ASSESSMENT COMPLETED. PT RESTING IN BED, DENIES PAIN OR C/O. O2 8L/OXYMIZER, SPO2 >95%. LEVO 3MGC, MAP >65, NS 75ML/HR. PT AWAKE, ALERT AND ORIENTED X4, NO CONFUSION NOTED AT THIS TIME. URINE CLEAR YELLOW, NO OBVIOUS SOURCE OF BLEEDING NOTED AT THIS TIME, PT DENIES ABD PAIN/NAUSEA, NO STOOLS. 0930: DR. ROSALES IN TO SEE PT. ECHO DONE, PT TALKED ON PHONE WITH SISTER. CEPACOL COUGH DROP GIVEN PER PT REQUEST FOR SCRATCHY THROAT, FEW ICE CHIPS GIVEN TO WET MOUTH. PT DENIES OTHER NEEDS, IS RESTING IN BED WITH NO C/O, VSS.
--- NOTE | 2019-02-21 10:46 | NUR ---
PT VISITING WITH FAMILY AT BEDSIDE, DENIES PAIN, DIZZINESS, OR FEELING LIGHT HEADED. LEVOPHED REMAINS OFF, MAP 64, WILL CONTINUE TO MONITOR. HR 80'S SINUS, SPO2 98% 8L/OXYMIZER. PT DENIES SOB.
--- NOTE | 2019-02-21 12:16 | NUR ---
DR. BOSE AT BEDSIDE, PT DENIES PAIN OR C/O. TITRATING O2 DOWN ABLE. VS REMAIN STABLE, MAP >65, HR 80'S, LEVO REMAINS OFF PT DENIES C/O, WILL ADVANCE DIET PER ORDERS.
--- NOTE | 2019-02-21 13:41 | NUR ---
NEW ORDERS RECEIVED, I.S. GIVEN TO PT WITH INSTRUCTION, PT USING APPROPRIATELY. NO CONFUSION NOTED THIS SHIFT, PT APPROPRIATE AND COOPERATIVE. PT AWARE OF ORDER FOR SPUTUM CULTURE, WILL ATTEMPT TO COLLECT, CUP LEFT AT BEDSIDE. PT SITTING UP IN BED EATING SOUP AND CRACKERS, DENIES ABD PAIN OR NAUSEA. SPIRITAUL CARE IN TO SEE PT, SON AT BEDSIDE AT THIS TIME. PT'S VSS.
[2019-02-21 14:48] LABS: Adenovirus Not Detected (NOT DETECT); Bordetella pertussis Not Detected (NOT DETECT); Chlamydophila pneumoniae Not Detected (NOT DETECT); Coronavirus 229E Not Detected (NOT DETECT); Coronavirus HKU1 Not Detected (NOT DETECT); Coronavirus NL63 Not Detected (NOT DETECT); Coronavirus OC43 Not Detected (NOT DETECT); Human Metapneumovirus Not Detected (NOT DETECT); Human Rhinovirus/Enterovirus Not Detected (NOT DETECT); Influenza A Not Detected (NOT DETECT); Influenza A/2009-H1 Not Detected (NOT DETECT); Influenza A/H1 Not Detected (NOT DETECT); Influenza A/H3 Not Detected (NOT DETECT); Influenza B Not Detected (NOT DETECT); Mycoplasma pneumoniae Not Detected (NOT DETECT); Parainfluenza Virus 1 Not Detected (NOT DETECT); Parainfluenza Virus 2 Not Detected (NOT DETECT); Parainfluenza Virus 3 Not Detected (NOT DETECT); Parainfluenza Virus 4 Not Detected (NOT DETECT); Respiratory Syncytial Virus Not Detected (NOT DETECT)
--- NOTE | 2019-02-21 15:16 | NUR ---
Per guille avelar, I met with Mrs. Dickey to offer information regarding advacned care planning. She shared with me that her of 64 years unexpectedly at home 2 weeks ago. She was stoic as she told me this story. She has 3 sons who live with/near her. 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 She agress that the stress of losing her may have contributed to this hospitalization. When I broached the subject of her Full Code status, she stated that chest compressions would probably not be beneficial. She was not ready to change her code status just yet, however. Advised RN of the need for further education/recommendations. Mrs. Dickey is non-pentecostal, but appeared to benefit from being heard and affirmed about the stress of loss and grief. I will remain available.
[2019-02-21 16:52] LABS: Adenovirus F 40/41 Not Detected (NOT DETECT); Astrovirus Not Detected (NOT DETECT); Campylobacter Sp Not Detected (NOT DETECT); Cryptosporidium Not Detected (NOT DETECT); Cyclospora Cayetanensis Not Detected (NOT DETECT); E. Coli O157 Not Detected (NOT DETECT); Entamoeba Histolytica Not Detected (NOT DETECT); Enteroaggregative E. coli-EAEC Not Detected (NOT DETECT); Enteropathogenic E. coli-EPEC Not Detected (NOT DETECT); Enterotoxigenic E. coli-ETEC Not Detected (NOT DETECT); Giardia Lamblia Not Detected (NOT DETECT); Norovirus GI/GII Not Detected (NOT DETECT); Plesiomonas Shigelloides Not Detected (NOT DETECT); Rotavirus A Not Detected (NOT DETECT); Salmonella Sp Not Detected (NOT DETECT); Sapovirus Not Detected (NOT DETECT); Shiga Toxin-prod E. coli-STEC Not Detected (NOT DETECT); Shigella/Enteroin E. coli-EIEC Not Detected (NOT DETECT); Vibrio Cholerae Not Detected (NOT DETECT); Vibrio Sp Not Detected (NOT DETECT); Yersinia Enterocolitica Not Detected (NOT DETECT)
--- NOTE | 2019-02-21 18:13 | NUR ---
1500: PT USED BEDPAN, STOOL SAMPLES SENT TO LAB. STOOL IS LIQUID, MUCOUSY, AND GREEN IN COLOR, NO OBVIOUS APPEARANCE OF GI BLEED. BEDBATH GIVEN, PT REFUSES ORAL CARE AND SHAMPOO. PT REPOSITIONED, DENIES NEEDS. 1700: PT VISITING WITH DAUGHTER, VSS. PT PCU STATUS. 1814: ATTENDS CHANGED FOR SMEAR OF GREEN LIQUID STOOL, UNABLE TO OBTAIN ENOUGH FOR SECOND GUIAC SAMPLE. PT'S VS REMAIN STABLE, APPETITE GOOD AT DINNER, PT DENIES OTHER NEEDS. DAUGHTER AT BEDSIDE.
[2019-02-21 18:45] LABS: Stool Occult Blood Guaiac 1 Pos (Neg)
--- NOTE | 2019-02-21 19:31 | NUR ---
STOOL LABS RECEIVED, REPORTED TO ONCOMING NURSE. VS REMAIN STABLE, PT DENIES C/O ABD PAIN/DISCOMFORT/NAUSEA, NO EMESIS TODAY. LEVOPHED REMAINS OFF, BP WNL. HR 80'S SINUS, URINE OUTPUT ADEQUATE.
--- NOTE | 2019-02-21 19:45 | NUR ---
ASSUMED CARE PT CURRENTLY AOX4. VSS. PT IS PLEASANT AND RESTING IN BED CONVERSING WITH VISITORS. PT IS ABLE TO ANSWER QUESTIONS APPROPRIATELY AND REQESTS UPDATE ON CONDITION. PERMISSION GRANTED TO UPDATE PATIENT AND CURRENT VISITORS. PT EDUCATED ON RESULTS OF GI PANEL AND INFORMED OF C-DIFF DIAGNOSIS AND POTENTIAL CHANGE IN ANTIBIOTIC REGIMEN. PT IS AGREEABLE TO PLAN OF CARE. LUNG SOUNDS DIMINISHED THROUGHOUT WITH SHALLOW RESPIRATIONS. PT WITH LOOSE, PRODUCTIVE COUGH OF THICK, DAVILA SPUTUM. PT CURRENTLY DENIES DYSPNEA. O2 SATS OF 95% ON 4L VIA NASAL CANNULA. CURRENTLY DENIES PAIN OR NAUSEA. WILL CONTINUE WITH ASSESSMENT AND MONITORING. BED IN LOW POSITION, CALL LIGHT IN REACH.
--- NOTE | 2019-02-21 23:06 | NUR ---
PROVIDER CONTACTED STOOL SPECIMEN TEST RESULTING POSITIVE FOR C-DIFF AND OCCULT BLOOD. PROVIDERS GIANCARLO Jesus AND PREM RIVAS CONTACTED AND INFORMED OF RESULTS. ORDERS TO BE INPUT BY PROVIDER.
--- NOTE | 2019-02-22 03:00 | NUR ---
PT UPDATE/INCREASING CONFUSION PT GROWING PROGRESSIVELY DISORIENTED THROUGHOUT THE NIGHT AND INCREASINGLY AGITATED WITH STAFF. ATTEMPTS TO REORIENT PATIENT HAVE BEEN UNSUCCESSFUL SHE CONTINUES TO ASK TO "GO TO HER OWN BED" AND ASKS TO "GET OUT OF THIS CHAIR SO SHE CAN GO LOCK THE DOORS". PT REASSURED THAT FAMILY IS CARING FOR HER HOUSE WHILE SHE IS IN THE HOSPITAL, TO WHICH SHE RESPONDS THAT SHE IS "AT HOME". PT ALSO CONTINUES TO PULL OXYGEN FROM FACE AND REFUSES TO PUT IT BACK ON. O2 SATS CURRENTLY RANGING FROM 87-89% ON RA. PT EDUCATED ON LOW O2 SATS AND ENCOURAGED TO REPLACE NASAL CANNULA- CONTINUES TO REFUSE NASAL CANNULA. MULTIPLE ATTEMPTS MADE BY THREE NURSES AND PCT TO REPLACE O2 WITHOUT SUCCESS. PT CURRENTLY STAYING IN BED. WILL CONTINUE TO MONITOR AND ASSESS. BED IN LOW POSITION, CALL LIGHT IN REACH. BED ALARM SET FOR SAFETY.
--- NOTE | 2019-02-22 06:00 | NUR ---
PT TRANSFER PT TO TRANSFER TO PCU 10. BEDSIDE REPORT GIVEN TO EVERARDO Maldonado RN. PT TRANSFERED TO PCU BED WITHOUT DIFFICULTY. PT CONTINUES TO REFUSE NASAL CANNULA AT THIS TIME.
--- NOTE | 2019-02-22 06:47 | NUR ---
RECEIVED FROM ICU 5 AT 0630 VIA BED. DENIES ANY PAIN. AGREES TO TAKE PO MED, DOES MAKE A STATEMENT ABOUT [employer] BE[employer] IN THE [employer] AND DOESNT AGREE WITH THE STAFF HELP / ORIENTED TO SELF . FIRST DEGREE/SR AT 90'S RATE
--- NOTE | 2019-02-22 08:55 | NUR ---
AM NOTE. ASSUMED CARE OF PT APROX 0700, PT IS A&Ox3 AND FORGETFUL AT TIMES. PT WAS ADMITTED FOR SEPSIS. PT'S VS STABLE, HRR, L/S COARSE AND DIM T/O PT IS ON RA WITH O2 SATS 89%, PT IS CURRENTLY REFUSING TO WEAR O2, WILL CONTINUE TO MONITOR HER SATS. PT'S NORRIS IS PATENT AND DRAINING TO GRAVITY. PT'S ATTENDS IN PLACE AND C/D/I. WILL CONTINUE TO MONITOR.
[2019-02-22 12:07] LABS: BASOPHILS ABSOLUTE AUTO 0.02 K/mm3 (0.00-0.23); BASOPHILS PERCENT AUTO 0 % (0-2); EOSINOPHILS ABSOLUTE AUTO 0.01 K/mm3 (0.00-0.68); EOSINOPHILS PERCENT AUTO 0 % (0-6); Hematocrit 34.7 % (33.0-51.0); Hemoglobin 11.9 g/dL (11.5-16.0); IMMATURE GRAN ABSOLUTE AUTO 0.12 K/mm3 (0.00-0.10); IMMATURE GRAN PERCENT AUTO 1 % (0-1); LYMPHOCYTES ABSOLUTE AUTO 1.63 K/mm3 (0.84-5.20); LYMPHOCYTES PERCENT AUTO 11 % (21-46); MONOCYTES PERCENT AUTO 4 % (4-13); Mean Corpuscular HGB 37.4 pg (26.0-34.0); Mean Corpuscular HGB Conc 34.3 g/dL (31.5-36.5); Mean Corpuscular Volume 109 fL (80-100); NEUTROPHILS ABSOLUTE AUTO 12.88 K/mm3 (1.96-9.15); NEUTROPHILS PERCENT AUTO 84 % (41-73); Platelet Count 171 K/mm3 (150-400); RDW Coefficient Variation 14.6 % (11.7-14.2); RDW Standard Deviation 58.9 fL (35.1-46.3); Red Blood Cell Count 3.18 M/mm3 (3.80-5.20); White Blood Cell Count 15.26 K/mm3 (4.00-11.30)
[2019-02-22 12:58] LABS: Alanine Aminotransfer (ALT/SGP 38 U/L (12-78); Albumin, Blood 2.3 g/dL (3.4-5.0); Albumin/Globulin Ratio 0.7 (0.8-1.8); Alk Phos 136 U/L (50-136); Anion Gap 7 mmol/L (6-16); Aspartate Aminotrans (AST/SGOT 102 U/L (12-37); Bilirubin, Total 1.1 mg/dL (0.1-1.0); Blood Urea Nitrogen 5 mg/dL (8-24); CO2, Blood 30 mmol/L (21-32); Calcium, Blood 7.4 mg/dL (8.5-10.1); Chloride, Blood 103 mmol/L (98-108); Globulin, Blood 3.2 g/dL (2.2-4.0); Glomerular Filtration Rate >60 (60-); Glucose, Blood 109 mg/dL (70-99); Potassium, Blood 2.7 mmol/L (3.5-5.5); Sodium, Blood 140 mmol/L (136-145); Total Protein, Blood 5.5 g/dL (6.4-8.2)
--- NOTE | 2019-02-22 17:56 | NUR ---
SHIFT SUMMARY. NO ACUTE CHANGES NOTED THIS SHIFT. PT'S O2 HAS BEEN TITRATED DOWN FROM 3L NC TO RA. PT'S VS STABLE, PT'S BLOOD SUGARS HAVE BEEN STABLE TODAY WELL. PT HAS BEEN VERY PLEASENT AND COOPERATIVE WITH CARE ALL SHIFT. PT WAS UP IN THE CHAIR FOR LUNCH AND DINNER. PT IS 1P W/FWW. PT HAS STATED SHE HAS FALLEN AT HOME AND IS AFRAID OF FALLING AGAIN. PT WORKED WITH PT/OT TODAY. PT HAD SEVERAL VISITORS T/O THE SHIFT TODAY. CALL LIGHT IN REACH, BED ALARM IS ON WILL CONTINUE TO MONITOR UNTIL REPORT IS GIVEN TO ONCOMING RN.
--- NOTE | 2019-02-22 19:30 | NUR ---
ASSUMED CARE PT IS CURRENTLY ALERT AND ORIENTED TO SELF, SURROUNDINGS, YEAR AND FOLLOWING DIRECTIONS. PT IS DISORIENTED TO SITUATION/EVENT AND CURRENT DATE. PT IS AGITATED AND CLAIMING THAT SHE NEEDS TO "GET HOME AND CHECK ON THINGS". PT REASSURED THAT FAMILY WAS TAKING CARE OF HER HOME AND THAT SHE NEEDS TO FOCUS ON GETTING BETTER AND HEALING. PT DIFFICULT TO UPDATE ON CONDITION AT THIS TIME AND IS FIXATED ON DISCHARGE. EXPLAINED TO PATIENT HER RIGHTS AND WHAT IT MEANS TO LEAVE AGAINST MEDICAL ADVICE AND RISK OF ENDING UP BACK IN HOSPITAL, BUT THAT SHE HAS THE RIGHT TO LEAVE WHENEVER SHE WANTS. PT DOES NOT USE CALL LIGHT APPROPRIATELY, BUT DOES NOT ATTEMPT SELF AMBULATION, PT WILL CALL OUT INTO HALLWAY WHEN SHE NEEDS TO GO TO THE RESTROOM. AMBULATES WITH ONE PERSON ASSIST AND FWW. LUNG SOUNDS ARE CURRENTLY COARSE THROUGHOUT, BUT CLEAR SOME WITH COUGHING. COUGH IS PRODUCTIVE OF THICK, DAVILA SPUTUM. O2 SATS ARE CURRENTLY 92% ON RA. PT REORIENTED TO CALL LIGHT SYSTEM AND ENCOURAGED TO USE THIS FOR ASSISTANCE. WILL CONTINUE TO MONITOR. BED IN LOW POSITION AND CALL LIGHT IN REACH.
--- NOTE | 2019-02-22 22:35 | NUR ---
PATIENT TRANSFER REPORT CALLED TO PRISCA BRYANT FOR PATIENT TRANSFER TO ROOM 351. PT TO BE TAKEN BY WHEELCHAIR BY TOUR BUS DRIVER.
--- NOTE | 2019-02-22 22:59 | NUR ---
PT TRANSFERED FROM PCU TO ROOM 351 AT 2250. PT TRANSFERED TO BED WITH 1 ASSIST AND FWW. THIS RN REVIEWED SHIFT ASSESSMENT BY WELL TESTING OPERATOR VANCE, NO ACUTE CHANGES NOTED. WILL CONTINUE TO MONITOR.
--- NOTE | 2019-02-23 04:43 | NUR ---
BACK TUFTER SUMMARY PT TRANSFERED FROM U TONIGHT. PT AAOX3 WITH SOME INTERMITTENT CONFUSION. TRACTOR TRAILER MOVING VAN DRIVER REPORTED THAT PT HAS SOME SUNDOWNERS. PT HAS BEEN MOSTLY ORIENTED BUT IS IMPULSIVE AND HAS ATTEMPTED TO GET OOB WITHOUT USING CALL LIGHT. BED ALARM ON FOR SAFETY. 1 ASSIST W/ FWW. PT HAS BEEN ON RA SINCE ARRIVAL TO UNIT, SATTING OVER 90%. DENIES PAIN, N/V, SOB. PT HAS RESTED WELL SINCE ARRIVING TO UNIT. VSS, WILL CONTINUE TO MONITOR.
[2019-02-23 09:40] LABS: BASOPHILS ABSOLUTE AUTO 0.02 K/mm3 (0.00-0.23); BASOPHILS PERCENT AUTO 0 % (0-2); EOSINOPHILS ABSOLUTE AUTO 0.01 K/mm3 (0.00-0.68); EOSINOPHILS PERCENT AUTO 0 % (0-6); Hematocrit 36.8 % (33.0-51.0); Hemoglobin 12.9 g/dL (11.5-16.0); IMMATURE GRAN ABSOLUTE AUTO 0.07 K/mm3 (0.00-0.10); IMMATURE GRAN PERCENT AUTO 0 % (0-1); LYMPHOCYTES ABSOLUTE AUTO 1.76 K/mm3 (0.84-5.20); LYMPHOCYTES PERCENT AUTO 11 % (21-46); MONOCYTES PERCENT AUTO 5 % (4-13); Mean Corpuscular HGB 38.5 pg (26.0-34.0); Mean Corpuscular HGB Conc 35.1 g/dL (31.5-36.5); Mean Corpuscular Volume 110 fL (80-100); Mean Platelet Volume 9.7 fL (9.1-12.4); NEUTROPHILS ABSOLUTE AUTO 13.13 K/mm3 (1.96-9.15); NEUTROPHILS PERCENT AUTO 84 % (41-73); Platelet Count 142 K/mm3 (150-400); RDW Coefficient Variation 14.5 % (11.7-14.2); RDW Standard Deviation 58.2 fL (35.1-46.3); Red Blood Cell Count 3.35 M/mm3 (3.80-5.20); White Blood Cell Count 15.69 K/mm3 (4.00-11.30)
[2019-02-23 09:54] LABS: Alanine Aminotransfer (ALT/SGP 37 U/L (12-78); Albumin, Blood 2.4 g/dL (3.4-5.0); Albumin/Globulin Ratio 0.6 (0.8-1.8); Alk Phos 135 U/L (50-136); Anion Gap 9 mmol/L (6-16); Aspartate Aminotrans (AST/SGOT 69 U/L (12-37); Blood Urea Nitrogen 3 mg/dL (8-24); Bun/Creatinine Ratio 6.8 (12.0-20.0); CO2, Blood 30 mmol/L (21-32); Calcium, Blood 7.8 mg/dL (8.5-10.1); Chloride, Blood 101 mmol/L (98-108); Creatinine, Blood 0.44 mg/dL (0.40-1.00); Globulin, Blood 3.8 g/dL (2.2-4.0); Glomerular Filtration Rate >60 (60-); Glucose, Blood 148 mg/dL (70-99); Potassium, Blood 2.6 mmol/L (3.5-5.5); Sodium, Blood 140 mmol/L (136-145); Total Protein, Blood 6.2 g/dL (6.4-8.2)
[2019-02-23] MEDS ORDERED: ACET325 PO (10:07)
[2019-02-23] MEDS ORDERED: CEPACOL SORE T1 EACH MM (10:08)
[2019-02-23] MEDS ORDERED: BENZ100A PO (10:08)
[2019-02-23] MEDS ORDERED: ROBITUSSIN DM PO (10:09)
[2019-02-23] MEDS ORDERED: LEVO750 PO (10:10)
[2019-02-23] MEDS ORDERED: Anti-Diarrheal2 MG PO (10:10)
[2019-02-23] MEDS ORDERED: POTCHL20ER PO (16:30)
--- NOTE | 2019-02-23 18:22 | NUR ---
PATIENT HAS BEEN QUIET ALL DAY. TOWARDS THE END OF SHIFT SHE HAS STARTED TO BECOME AGITATED. PATIENT HAS K+ RUNNING AND WILL BE DC AFTER. SHE IS GOING TO RETURN TO HER SON AND LIVE AT HOME.
[2019-05-10] MEDS ORDERED: K-Dur 20 meq T20 MEQ PO (23:13)
[2019-05-10] MEDS ORDERED: CEPH500 PO ×2 (23:13→23:26)
[2019-05-10] MEDS ORDERED: Kaon-Cl40 MEQ/15 PO (23:24)
== END 2019-02-23 20:00 | disposition home or self-care (01) | DRG 871 ==
LOC: ER 08:43 → ICUE 13:03 → ICUW 13:03 → ICUE 13:20 → PCU 02-22 06:20 → MEDS 02-22 22:44 → ENPENDDIS 02-23 13:42 → MEDS 02-23 20:00
PROVIDERS: Emergency Medicine; Internal Medicine; Internal Medicine Gastroenterology; ADMIT Internal Medicine
PROC: 02HV33Z Insertion of Infusion Device into Superior Vena Cava, Percutaneous Approach (ICD-10-PCS; principal; 2019-02-20)
DX: A41.9 Sepsis, unspecified organism (principal); R65.21 Severe sepsis with septic shock; J96.01 Acute respiratory failure with hypoxia; E87.2 Acidosis; E46 Unspecified protein-calorie malnutrition; Z68.1 Body mass index [BMI] 19.9 or less, adult; K52.9 Noninfective gastroenteritis and colitis, unspecified; E87.6 Hypokalemia; J20.9 Acute bronchitis, unspecified; E86.0 Dehydration; F32.9 Major depressive disorder, single episode, unspecified; F41.9 Anxiety disorder, unspecified; I10 Essential (primary) hypertension; R73.9 Hyperglycemia, unspecified; Z88.5 Allergy status to narcotic agent; Z87.891 Personal history of nicotine dependence; Z87.440 Personal history of urinary (tract) infections
CPT/HCPCS: 0097U; 0099U; 36415; 36569; 36600; 51702; 71045; 74176; 76705; 80047; 80048; 80053; 81001; 82010; 82270; 82550; 82553; 82803; 82947; 83036; 83605; 83735; 83880; 84145; 84439; 84443; 84484; 85014; 85025; 85027; 85379; 87040; 87070; 87081; 87086; 87205; 87324; 93005; 93010; 93306; 94667; 94760; 96361-59; 96365-59; 96367-59; 96375-59; 96376-59; 97110; 97116; 97162; 97166; 97530; 97535; 99285-25; C1751; J0780; J1650; J1956; J2543; J3475; J3480; J7030; J7040; J7050; J7060; J7799

== ENCOUNTER 2019-07-07 00:40 | Emergency (ER) | payer OTHER ==
[~2019-07-07] VITALS: Ht 172.7 cm; Wt 54.4 kg
[~2019-07-07 00:40] MED LIST changes: +ACET325 PO; +Anti-Diarrheal2 MG PO; +BENZ100A PO; +CEPACOL SORE T1 EACH MM; +K-Dur 20 meq T20 MEQ PO; +Kaon-Cl40 MEQ/15 PO; +LEVO750 PO; +ROBITUSSIN DM PO
== END 2019-07-07 03:38 | disposition home or self-care (01) ==
LOC: ER 00:40
DX: M43.6 Torticollis (principal); I10 Essential (primary) hypertension; Z88.5 Allergy status to narcotic agent; Z79.899 Other long term (current) drug therapy
CPT/HCPCS: 99283

== ENCOUNTER 2019-07-29 16:09 | Emergency (ER) | payer OTHER ==
[~2019-07-29] VITALS: Ht 167.6 cm; Wt 49.9 kg
[2019-07-29 17:19] LABS: BASOPHILS ABSOLUTE AUTO 0.06 K/mm3 (0.00-0.23); BASOPHILS PERCENT AUTO 1 % (0-2); EOSINOPHILS ABSOLUTE AUTO 0.38 K/mm3 (0.00-0.68); EOSINOPHILS PERCENT AUTO 4 % (0-6); Hematocrit 35.7 % (33.0-51.0); Hemoglobin 11.8 g/dL (11.5-16.0); IMMATURE GRAN ABSOLUTE AUTO 0.01 K/mm3 (0.00-0.10); IMMATURE GRAN PERCENT AUTO 0 % (0-1); LYMPHOCYTES ABSOLUTE AUTO 2.91 K/mm3 (0.84-5.20); LYMPHOCYTES PERCENT AUTO 32 % (21-46); MONOCYTES ABSOLUTE AUTO 0.91 K/mm3 (0.16-1.47); MONOCYTES PERCENT AUTO 10 % (4-13); Mean Corpuscular HGB 36.4 pg (26.0-34.0); Mean Corpuscular HGB Conc 33.1 g/dL (31.5-36.5); Mean Corpuscular Volume 110 fL (80-100); Mean Platelet Volume 9.7 fL (9.1-12.4); NEUTROPHILS ABSOLUTE AUTO 4.92 K/mm3 (1.96-9.15); NEUTROPHILS PERCENT AUTO 54 % (41-73); Platelet Count 276 K/mm3 (150-400); RDW Coefficient Variation 14.1 % (11.7-14.2); Red Blood Cell Count 3.24 M/mm3 (3.80-5.20); White Blood Cell Count 9.19 K/mm3 (4.00-11.30)
[2019-07-29 17:31] LABS: Source, Urine Catheter
[2019-07-29 17:37] LABS: Bilirubin, Urine Neg (Neg); Blood, Urine 4+ (Neg); Glucose Qualitative, Urine Neg (Neg); Ketones, Urine 1+ (Neg); Leukocyte Esterase, Urine 3+ (Neg); Nitrite, Urine Neg (Neg); Protein, Urine 3+ (Neg); Specific Gravity, Urine 1.015 (1.003-1.022); Urobilinogen, Urine 1+ (Normal)
[2019-07-29 17:42] LABS: Alanine Aminotransfer (ALT/SGP 40 U/L (12-78); Albumin, Blood 2.1 g/dL (3.4-5.0); Albumin/Globulin Ratio 0.5 (0.8-1.8); Alk Phos 138 U/L (50-136); Anion Gap 10 mmol/L (6-16); Aspartate Aminotrans (AST/SGOT 86 U/L (12-37); Bilirubin, Total 0.9 mg/dL (0.1-1.0); Blood Urea Nitrogen 15 mg/dL (8-24); Bun/Creatinine Ratio 14.2 (12.0-20.0); CO2, Blood 22 mmol/L (21-32); Calcium, Blood 8.1 mg/dL (8.5-10.1); Chloride, Blood 106 mmol/L (98-108); Creatinine, Blood 1.06 mg/dL (0.40-1.00); Ethanol (Alcohol), Blood, Med <3 mg/dL; Globulin, Blood 4.2 g/dL (2.2-4.0); Glomerular Filtration Rate 52 (60-); Glucose, Blood 104 mg/dL (70-99); Magnesium, Blood 1.6 mg/dL (1.6-2.4); Potassium, Blood 3.8 mmol/L (3.5-5.5); Sodium, Blood 138 mmol/L (136-145); Total Protein, Blood 6.3 g/dL (6.4-8.2)
[2019-07-29 17:49] LABS: Appearance, Urine Cloudy (Clear); Color, Urine Yellow (P-Yellow)
[2019-07-29 17:52] LABS: Squamous Epithelial Cells Rare /hpf (Few); White Blood Cells, Urine TNTC /hpf (0-5)
[2019-07-29 17:53] LABS: Bacteria Many /hpf
[2019-07-29] MEDS ORDERED: Diflucan100 MG PO (18:23)
[2019-07-29] MEDS ORDERED: ONDA4ODT MM (18:23)
[2019-07-29] MEDS ORDERED: CEPH500 PO (18:23)
== END 2019-07-29 19:55 | disposition home or self-care (01) ==
LOC: ER 16:09
PROVIDERS: Emergency Medicine
DX: N39.0 Urinary tract infection, site not specified (principal); B37.9 Candidiasis, unspecified; I10 Essential (primary) hypertension; Z87.440 Personal history of urinary (tract) infections
CPT/HCPCS: 36415; 71045; 80053; 81001; 83735; 85025; 87077; 87086; 87186; 93005; 93010; 96361; 96374; 99284-25; A9270-GY; G0480; J2405; J7030; P9612

== ENCOUNTER 2019-08-07 03:32 | Inpatient (IN) | payer OTHER ==
[~2019-08-07] VITALS: Ht 172.7 cm; Wt 50.8 kg
[~2019-08-07 03:32] MED LIST changes: +Diflucan100 MG PO; +ONDA4ODT MM
[2019-08-07 06:55] LABS: BASOPHILS ABSOLUTE AUTO 0.06 K/mm3 (0.00-0.23); BASOPHILS PERCENT AUTO 0 % (0-2); EOSINOPHILS PERCENT AUTO 0 % (0-6); Hematocrit 36.7 % (33.0-51.0); IMMATURE GRAN ABSOLUTE AUTO 0.16 K/mm3 (0.00-0.10); IMMATURE GRAN PERCENT AUTO 1 % (0-1); LYMPHOCYTES PERCENT AUTO 9 % (21-46); MONOCYTES PERCENT AUTO 3 % (4-13); Mean Corpuscular HGB 36.1 pg (26.0-34.0); Mean Corpuscular HGB Conc 32.7 g/dL (31.5-36.5); Mean Corpuscular Volume 111 fL (80-100); Mean Platelet Volume 9.3 fL (9.1-12.4); NEUTROPHILS ABSOLUTE AUTO 20.91 K/mm3 (1.96-9.15); NEUTROPHILS PERCENT AUTO 87 % (41-73); Platelet Count 414 K/mm3 (150-400); RDW Coefficient Variation 14.5 % (11.7-14.2); RDW Standard Deviation 59.3 fL (35.1-46.3); Red Blood Cell Count 3.32 M/mm3 (3.80-5.20); White Blood Cell Count 23.93 K/mm3 (4.00-11.30)
[2019-08-07 07:12] LABS: Alanine Aminotransfer (ALT/SGP 32 U/L (12-78); Albumin, Blood 2.4 g/dL (3.4-5.0); Albumin/Globulin Ratio 0.5 (0.8-1.8); Alk Phos 128 U/L (50-136); Anion Gap 17 mmol/L (6-16); Aspartate Aminotrans (AST/SGOT 59 U/L (12-37); Bilirubin, Total 0.7 mg/dL (0.1-1.0); Blood Urea Nitrogen 5 mg/dL (8-24); Bun/Creatinine Ratio 8.1 (12.0-20.0); CO2, Blood 18 mmol/L (21-32); Calcium, Blood 8.4 mg/dL (8.5-10.1); Chloride, Blood 110 mmol/L (98-108); Creatinine, Blood 0.62 mg/dL (0.40-1.00); Globulin, Blood 4.5 g/dL (2.2-4.0); Glomerular Filtration Rate >60 (60-); Glucose, Blood 117 mg/dL (70-99); Sodium, Blood 145 mmol/L (136-145); Total Protein, Blood 6.9 g/dL (6.4-8.2)
[2019-08-07 07:14] LABS: International Normalized Ratio 1.08; Prothrombin Time Results 11.5 Sec (9.7-11.5)
[2019-08-07 07:55] LABS: Source, Urine Catheter
[2019-08-07 08:04] LABS: Appearance, Urine Clear (Clear); Bilirubin, Urine Neg (Neg); Blood, Urine 4+ (Neg); Color, Urine Yellow (P-Yellow); Glucose Qualitative, Urine Neg (Neg); Ketones, Urine Neg (Neg); Leukocyte Esterase, Urine Neg (Neg); Nitrite, Urine Neg (Neg); Protein, Urine Neg (Neg); Specific Gravity, Urine 1.015 (1.003-1.022); Urobilinogen, Urine NORM (Normal)
[2019-08-07 08:16] LABS: Squamous Epithelial Cells Few /hpf (Few); White Blood Cells, Urine Not Seen /hpf (0-5)
[2019-08-07 08:17] LABS: Bacteria Not Seen /hpf; Mucus Light (0-Heavy)
--- NOTE | 2019-08-07 08:18 | NUR ---
PT HERE FROM ER VIA GURNEY, MOVED TO BED WITH MULT ASSIST. PT TOLERATED WELL. PT DENIES CP, SOB, N/V, N/T. PT HAS COOL FEET. PPX4. PT WIGGLES TOES. PT LS CLEAR. PT HAS NO OPEN SORES ON BOTTOM, MEPILEX PLACED. PT RIGHT LEG INTERNALLY ROTATED AND SHORTENED. PT HAS NO SORES ON HEELS, HEELS FLOATED WITH PILLOW. PT REPORTS PAIN TOLERABLE AND DID NOT CHANGE AFTER PLACING PILLOW UNDER LEGS TO FLOAT HEELS. PT REPORTS DOES NOT WISH TO HAVE FLU SHOT. PT REPORTS HAVING BM DAY BEFORE LAST AND THAT SHE NORMALLY HAS CHRONIC DIARRHEA. PT A/O. PT ORIENTED TO ROOM, CALL LIGHT, BED, PHONE.
--- NOTE | 2019-08-07 12:05 | NUR ---
PT TO IMAGING AFTER PAIN MED GIVEN SHE REPORTED TO NOT TOLERATE HAVING XRAY EARLIER. DR NOONAN AWARE REQ TO GIVE PAIN MED AND SEE IF PT ABLE TO TOLERATE XRAY, DISCUSSED WITH IMAGING. PT WAS MOVED TO [facility] WITH MULT ASSIST.
--- NOTE | 2019-08-07 12:51 | NUR ---
PT REPORTED TO HAVE TOLERATED XRAYS. PT MOVED TO BED WITH MULT ASSIST. PT APPEARS TO REPEAT HERSELF. BED ALARM PLACED FOR SAFETY. IMAGING REPORTED DISCUSSING WITH DR EARLIER WHEN PT WAS IN ER THAT SHE HAS CONFUSION AT TIMES.
--- NOTE | 2019-08-07 19:12 | NUR ---
SHIFT SUMMARY PT EATING AND DRINKING SMALL AMTS WITHOUT DIFFICULTY. PT BEEN ASSISTED WITH BED [place] MULT TIMES WHICH PT HAS MOSTLY HAD "JUST GAS". PT BEEN REPOSITIONED MULT TIMES AND HAS HAD HEELS FLOATED.
--- NOTE | 2019-08-08 04:31 | NUR ---
SHIFT SUMMARY PT IS ALERT AND ORIENTED TO PLACE AND SITUATION, HOWEVER SHE IS VERY CONFUSED AT TIMES. BED ALARM HAS BEEN ON. PT HAS BEEN REPOSITIONED MULT TIMES THIS SHIFT. NORRIS IN PLACE, OFF FLOOR. HAS BEEN NPO SINCE MIDNIGHT. ASSISTED WITH ADL'S PRN.
[2019-08-08 05:38] LABS: BASOPHILS ABSOLUTE AUTO 0.09 K/mm3 (0.00-0.23); BASOPHILS PERCENT AUTO 1 % (0-2); EOSINOPHILS ABSOLUTE AUTO 0.07 K/mm3 (0.00-0.68); EOSINOPHILS PERCENT AUTO 1 % (0-6); Hematocrit 29.1 % (33.0-51.0); Hemoglobin 9.6 g/dL (11.5-16.0); IMMATURE GRAN ABSOLUTE AUTO 0.06 K/mm3 (0.00-0.10); IMMATURE GRAN PERCENT AUTO 0 % (0-1); LYMPHOCYTES ABSOLUTE AUTO 3.62 K/mm3 (0.84-5.20); LYMPHOCYTES PERCENT AUTO 25 % (21-46); MONOCYTES ABSOLUTE AUTO 1.06 K/mm3 (0.16-1.47); MONOCYTES PERCENT AUTO 7 % (4-13); Mean Corpuscular HGB 36.5 pg (26.0-34.0); Mean Corpuscular Volume 111 fL (80-100); Mean Platelet Volume 9.6 fL (9.1-12.4); NEUTROPHILS ABSOLUTE AUTO 9.54 K/mm3 (1.96-9.15); NEUTROPHILS PERCENT AUTO 66 % (41-73); Platelet Count 276 K/mm3 (150-400); RDW Coefficient Variation 14.8 % (11.7-14.2); RDW Standard Deviation 59.3 fL (35.1-46.3); Red Blood Cell Count 2.63 M/mm3 (3.80-5.20); White Blood Cell Count 14.44 K/mm3 (4.00-11.30)
[2019-08-08 06:02] LABS: Magnesium, Blood 1.6 mg/dL (1.6-2.4)
[2019-08-08 06:03] LABS: Albumin, Blood 1.9 g/dL (3.4-5.0); Albumin/Globulin Ratio 0.5 (0.8-1.8); Anion Gap 7 mmol/L (6-16); Aspartate Aminotrans (AST/SGOT 42 U/L (12-37); Bilirubin, Total 0.7 mg/dL (0.1-1.0); Blood Urea Nitrogen 11 mg/dL (8-24); Bun/Creatinine Ratio 14.3 (12.0-20.0); CO2, Blood 24 mmol/L (21-32); Calcium, Blood 7.6 mg/dL (8.5-10.1); Chloride, Blood 109 mmol/L (98-108); Creatinine, Blood 0.77 mg/dL (0.40-1.00); Globulin, Blood 3.7 g/dL (2.2-4.0); Glomerular Filtration Rate >60 (60-); Glucose, Blood 85 mg/dL (70-99); Potassium, Blood 4.4 mmol/L (3.5-5.5); Sodium, Blood 140 mmol/L (136-145); Total Protein, Blood 5.6 g/dL (6.4-8.2)
[2019-08-08 06:09] LABS: Alanine Aminotransfer (ALT/SGP 27 U/L (12-78); Alk Phos 98 U/L (50-136)
--- NOTE | 2019-08-08 11:56 | NUR ---
PREPARING TO GO TO OR TALKING ON PHONE TO RELATIVE. DAY SURG IN TO TAKE PT TO OR.
--- NOTE | 2019-08-08 12:11 | NUR ---
PT TRANSPORTED TO [facility]. AGREES WITH PLANNED SURGERY. ALERT AND ANSWERS QUESTIONS APPROPRIATLY
--- NOTE | 2019-08-08 12:20 | NUR ---
TWO RINGS REMOVED AND LEFT IN PTS PURSE IN FRONT ZIPPERED POCKET. PT STATES SHE DOES NOT WANT TO REMOVED [place] RING.
--- NOTE | 2019-08-08 14:13 | NUR ---
08/08/19 1413 Elle Matthews WHEN MOVING PATIENT FROM SURGURY BED TO FLOOR BED A SMALL SKIN TEAR AND REDNESS WAS NOTICED BY DR. STALLINGS ON INNER RIGHT LEG. PACU WAS NOTIFIED. DRESSING WAS APPLIED.
--- NOTE | 2019-08-08 15:13 | NUR ---
PT BACK TO ROOM FROM PACU A&O. DENIES PAIN AT THIS TIME. DRESSING TO R HIP CDI. SMALL SKIN TEAR TO R INNER THIGH SUSTAINED DURING CASE PER PACU REPORT. CALL LIGHT IN REACH.
--- NOTE | 2019-08-08 17:06 | NUR ---
SUMMARY S/P R HIP FX REPAIR THIS SHIFT. VSS. MEDICATED PER ORDERS FOR PAIN. PT DENIES ANY NEEDS AT THIS TIME. TOLERATED JELLO. DENIES NAUSE OR SOB. FAMILY AT BEDSIDE. CALL LIGHT IN REACH. BED ALARM ON.
--- NOTE | 2019-08-08 23:06 | NUR ---
C/O FEELING THE NEED TO URINATE. REITERATED THAT NORRIS CATH IS STILL IN PLACE, STATES, "I HATE THOSE DAMNED THINGS!" BLADDER MASSAGE COMPLETED, 4ML OF CLOUDY YELLOW WITH SEDIMENT NOTED IN LINE. VOICES THAT SHE FEELS MUCH BETTER NOW. SAFETY MEASURES IN PLACE. WILL CONTINUE TO MONITOR.
--- NOTE | 2019-08-09 04:30 | NUR ---
C/O FEELING THE NEED TO URINATE. REITERATED THAT NORRIS IS IN PLACE, STATES, "I KNOW THAT, BUT I STILL FEEL LIKE I NEED TO PEE!" NURSING FLUSHED NORRIS CATH USING STERILE TECHNIQUE, TOLERATED WELL. VOICE RESOLUTION OF FEELING THE NEED TO URINATE. SAFETY MEASURES IN PLACE, WILL CONTINUE TO MONITOR.
[2019-08-09 04:52] LABS: BASOPHILS ABSOLUTE AUTO 0.01 K/mm3 (0.00-0.23); BASOPHILS PERCENT AUTO 0 % (0-2); EOSINOPHILS PERCENT AUTO 0 % (0-6); Hematocrit 23.3 % (33.0-51.0); Hemoglobin 7.4 g/dL (11.5-16.0); IMMATURE GRAN ABSOLUTE AUTO 0.05 K/mm3 (0.00-0.10); IMMATURE GRAN PERCENT AUTO 0 % (0-1); LYMPHOCYTES ABSOLUTE AUTO 0.96 K/mm3 (0.84-5.20); LYMPHOCYTES PERCENT AUTO 8 % (21-46); MONOCYTES ABSOLUTE AUTO 0.45 K/mm3 (0.16-1.47); MONOCYTES PERCENT AUTO 4 % (4-13); Mean Corpuscular HGB 36.1 pg (26.0-34.0); Mean Corpuscular HGB Conc 31.8 g/dL (31.5-36.5); Mean Platelet Volume 9.8 fL (9.1-12.4); NEUTROPHILS ABSOLUTE AUTO 10.23 K/mm3 (1.96-9.15); NEUTROPHILS PERCENT AUTO 88 % (41-73); Platelet Count 225 K/mm3 (150-400); RDW Coefficient Variation 14.5 % (11.7-14.2); RDW Standard Deviation 60.4 fL (35.1-46.3); Red Blood Cell Count 2.05 M/mm3 (3.80-5.20)
[2019-08-09 05:02] LABS: Mean Corpuscular Volume 114 fL (80-100)
[2019-08-09 05:10] LABS: Magnesium, Blood 1.5 mg/dL (1.6-2.4)
[2019-08-09 05:11] LABS: Anion Gap 9 mmol/L (6-16); Blood Urea Nitrogen 9 mg/dL (8-24); Bun/Creatinine Ratio 14.9 (12.0-20.0); CO2, Blood 20 mmol/L (21-32); Chloride, Blood 113 mmol/L (98-108); Creatinine, Blood 0.61 mg/dL (0.40-1.00); Glomerular Filtration Rate >60 (60-); Glucose, Blood 210 mg/dL (70-99); Sodium, Blood 142 mmol/L (136-145)
--- NOTE | 2019-08-09 06:38 | NUR ---
SHIFT SUMMARY LYING IN SEMIFOWLERS WITH EYES OPEN. HAS BEEN CONFUSED SEVERAL TIMES THROUGHOUT SHIFT, BUT HAS BEEN EASILY REORIENTABLE. FAMILY STATES THAT HER BASELINE IS AAO X4 WITHOUT INTERMITTEN CONFUSION. NOTED IS A CURRENT UTI THAT IS ESBL (+), FOR WHICH PT IS ON CONTACT PRECAUTIONS. RIGHT HIP BULKY DRESSING IS C/D/I. REPOSITIONING PT Q2HRS AND PRN FOR COMFORT. DENEIS PAIN, DISCOMFORT, OR FURTHER NEEDS AT THIS TIME. SAFETY MEASURES IN PLACE. WILL CONTINUE TO MONITOR.
[2019-08-09 09:35] LABS: Hematocrit 24.5 % (33.0-51.0); Hemoglobin 7.7 g/dL (11.5-16.0)
--- NOTE | 2019-08-09 11:04 | NUR ---
NORRIS CATHETER REMOVED AT 1100.
--- NOTE | 2019-08-09 17:48 | NUR ---
SHIFT SUMMARY PAIN HAS BEEN MANAGED WITH PO PAIN MEDICATION THIS SHIFT. PT IS GETTING 1 UNIT OF PRBCs. SHE WORKED WITH PHYSICAL THERAPY THIS AFTERNOON. FAMILY HAS BEEN PRESENT THIS AFTERNOON FOR SUPPORT. VSS. WILL MONITOR UNTIL REPORT TO ONCOMING RN.
--- NOTE | 2019-08-09 18:35 | NUR ---
DECREASED OUTPUT PT HAS HAD 125ML OF URINE OUT THIS SHIFT, PLUS ONE SMALL UNMEASURED VOID. BLADDER SCAN SHOWS 162ML IN HER BLADDER. WILL CONTINUE IV FLUIDS AND ENCOURAGE FLUIDS.
--- NOTE | 2019-08-10 04:37 | NUR ---
SHIFT SUMMARY POD 2 T HIP FX. DRESSING CDI, SMALL BRUISING AROUND DRESSING ON LEFT HIP. PT HELPING WITH REPOSITIONING TODAY. AA0X3, STRUGGLED WITH DATE AND TIME. REORIENTED WELL. PT NOT USING CALL LIGHT AND STILL CALLS OUT. CONT OF BLADDER WITH BEDPAN. PLEASANT AND COOPERATIVE TODAY.
[2019-08-10 04:49] LABS: Hematocrit 28.3 % (33.0-51.0); Hemoglobin 8.9 g/dL (11.5-16.0)
--- NOTE | 2019-08-10 07:47 | NUR ---
pt pulled put iv stated her blanket was wet removed and turned off
--- NOTE | 2019-08-10 11:06 | NUR ---
pt working with physical therapy able to stand with fww only
--- NOTE | 2019-08-10 11:28 | NUR ---
dr gipson by to see pt talked with the pt about going to snf
--- NOTE | 2019-08-10 13:22 | NUR ---
dr zavala by to see pt placed aquacel dressing to hip x2
--- NOTE | 2019-08-10 14:27 | NUR ---
family at bedside update given on pt's cond notified s/s
--- NOTE | 2019-08-10 18:45 | NUR ---
PT JUST HAD BM EARLIER BEFORE DINNER 1 TAB PO NORCO GIVEN
--- NOTE | 2019-08-11 05:37 | NUR ---
SHIFT SUMMARY PT IS ORIENTED TO SELF, PLACE, AND SITUATION BUT DOES NOT REMEMBER TO USE CALL LIGHT AND FORGETS INSTRUCTIONS EASILY. HAS BEEN REORIENTED SEVERAL TIMES THIS SHIFT. PT USES BEDPAN AND HAS ATTENS IN PLACE FOR OCCASIONAL INCONTINENCE. PT IS VOIDING, PASSING GAS, HAVING BM'S. SCD'S HAVE BEEN ON. BED ALARM ON. PT REPOSITIONED SEVERAL TIMES THROUGHOUT THE NIGHT. ASSISTED WITH ADL'S PRN.
--- NOTE | 2019-08-11 13:15 | NUR ---
DISCHARGE PT DISCHARGED TO [facility] AT APROX 1515. REPORT GIVEN TO OCTAVIO. PT MAX 2 PERSON ASSIST TO CHAIR.
== END 2019-08-11 13:13 | disposition home or self-care (01) | DRG 481 ==
LOC: ER 03:32 → SURS 06:33
PROVIDERS: Emergency Medicine; Internal Medicine; Orthopaedic Surgery; ADMIT Internal Medicine
PROC: 0QS634Z Reposition Right Upper Femur with Internal Fixation Device, Percutaneous Approach (ICD-10-PCS; principal; 2019-08-08 13:30)
DX: S72.141A Displaced intertrochanteric fracture of right femur, initial encounter for closed fracture (principal); E87.2 Acidosis; D62 Acute posthemorrhagic anemia; E86.0 Dehydration; E87.6 Hypokalemia; F32.9 Major depressive disorder, single episode, unspecified; W18.30XA Fall on same level, unspecified, initial encounter; Y92.009 Unspecified place in unspecified non-institutional (private) residence as the place of occurrence of the external cause; F03.90 Unspecified dementia, unspecified severity, without behavioral disturbance, psychotic disturbance, mood disturbance, and anxiety; D72.829 Elevated white blood cell count, unspecified; F41.9 Anxiety disorder, unspecified
CPT/HCPCS: 36415; 36430; 51702; 72192; 73502; 80048; 80053; 81001; 83735; 84100; 85014; 85018; 85025; 85610; 86850; 86900; 86901; 86923; 93005; 93010; 96374-59; 97110; 97116; 97163; 97166; 97530; 97535; 99285-25; A9270; A9270-GY; C1713; C1769; J0696; J1100; J1650; J1885; J2405; J2704; J3010; J3370; J3475; J7030; J7042; J7050; J7120; P9016

== ENCOUNTER 2019-09-28 19:51 | Inpatient (IN) | payer OTHER ==
[~2019-09-28] VITALS: Ht 172.7 cm; Wt 54.6 kg
[2019-09-28 20:40] LABS: Source, Urine Clean Catch
[2019-09-28 20:43] LABS: BASOPHILS ABSOLUTE AUTO 0.13 K/mm3 (0.00-0.23); BASOPHILS PERCENT AUTO 1 % (0-2); EOSINOPHILS ABSOLUTE AUTO 0.45 K/mm3 (0.00-0.68); EOSINOPHILS PERCENT AUTO 4 % (0-6); IMMATURE GRAN ABSOLUTE AUTO 0.03 K/mm3 (0.00-0.10); IMMATURE GRAN PERCENT AUTO 0 % (0-1); LYMPHOCYTES ABSOLUTE AUTO 4.55 K/mm3 (0.84-5.20); LYMPHOCYTES PERCENT AUTO 43 % (21-46); MONOCYTES ABSOLUTE AUTO 0.75 K/mm3 (0.16-1.47); MONOCYTES PERCENT AUTO 7 % (4-13); Mean Corpuscular HGB Conc 33.3 g/dL (31.5-36.5); Mean Corpuscular Volume 102 fL (80-100); Mean Platelet Volume 10.2 fL (9.1-12.4); NEUTROPHILS ABSOLUTE AUTO 4.76 K/mm3 (1.96-9.15); NEUTROPHILS PERCENT AUTO 45 % (41-73); Platelet Count 416 K/mm3 (150-400); RDW Coefficient Variation 13.5 % (11.7-14.2); Red Blood Cell Count 3.82 M/mm3 (3.80-5.20); White Blood Cell Count 10.67 K/mm3 (4.00-11.30)
[2019-09-28 20:46] LABS: Bilirubin, Urine Neg (Neg); Blood, Urine Neg (Neg); Glucose Qualitative, Urine Neg (Neg); Ketones, Urine Neg (Neg); Leukocyte Esterase, Urine 1+ (Neg); Nitrite, Urine Neg (Neg); Protein, Urine Neg (Neg); Urobilinogen, Urine NORM (Normal)
[2019-09-28 20:51] LABS: Appearance, Urine Clear (Clear); Color, Urine Yellow (P-Yellow)
[2019-09-28 20:53] LABS: Red Blood Cells, Urine Not Seen /hpf (0-2); Squamous Epithelial Cells Rare /hpf (Few); White Blood Cells, Urine 0-2 /hpf (0-5)
[2019-09-28 20:54] LABS: Bacteria Few /hpf
[2019-09-28 21:24] LABS: CPK Creatine Kinase 54 U/L (26-193); Ethanol (Alcohol), Blood, Med 182 mg/dL; Troponin I <0.015 ng/mL (0.000-0.040)
[2019-09-28 21:28] LABS: Alanine Aminotransfer (ALT/SGP 20 U/L (12-78); Albumin, Blood 2.9 g/dL (3.4-5.0); Albumin/Globulin Ratio 0.7 (0.8-1.8); Alk Phos 172 U/L (50-136); Anion Gap 7 mmol/L (6-16); Aspartate Aminotrans (AST/SGOT 36 U/L (12-37); Bilirubin, Total 0.3 mg/dL (0.1-1.0); Blood Urea Nitrogen 2 mg/dL (8-24); Bun/Creatinine Ratio 4.1 (12.0-20.0); CO2, Blood 27 mmol/L (21-32); Calcium, Blood 8.7 mg/dL (8.5-10.1); Chloride, Blood 107 mmol/L (98-108); Creatinine, Blood 0.49 mg/dL (0.40-1.00); Globulin, Blood 4.4 g/dL (2.2-4.0); Glomerular Filtration Rate >60 (60-); Glucose, Blood 105 mg/dL (70-99); Potassium, Blood 2.4 mmol/L (3.5-5.5); Sodium, Blood 141 mmol/L (136-145); Total Protein, Blood 7.3 g/dL (6.4-8.2)
[2019-09-29 05:23] LABS: BASOPHILS PERCENT AUTO 1 % (0-2); EOSINOPHILS ABSOLUTE AUTO 0.37 K/mm3 (0.00-0.68); EOSINOPHILS PERCENT AUTO 5 % (0-6); Hemoglobin 13.2 g/dL (11.5-16.0); IMMATURE GRAN ABSOLUTE AUTO 0.02 K/mm3 (0.00-0.10); IMMATURE GRAN PERCENT AUTO 0 % (0-1); LYMPHOCYTES ABSOLUTE AUTO 2.97 K/mm3 (0.84-5.20); LYMPHOCYTES PERCENT AUTO 39 % (21-46); MONOCYTES PERCENT AUTO 8 % (4-13); Mean Corpuscular HGB 33.6 pg (26.0-34.0); Mean Corpuscular Volume 102 fL (80-100); Mean Platelet Volume 9.6 fL (9.1-12.4); NEUTROPHILS ABSOLUTE AUTO 3.49 K/mm3 (1.96-9.15); NEUTROPHILS PERCENT AUTO 46 % (41-73); Platelet Count 369 K/mm3 (150-400); RDW Coefficient Variation 13.4 % (11.7-14.2); RDW Standard Deviation 50.4 fL (35.1-46.3); Red Blood Cell Count 3.93 M/mm3 (3.80-5.20); White Blood Cell Count 7.55 K/mm3 (4.00-11.30)
[2019-09-29 05:44] LABS: Anion Gap 7 mmol/L (6-16); Blood Urea Nitrogen 3 mg/dL (8-24); Bun/Creatinine Ratio 7.4 (12.0-20.0); CO2, Blood 28 mmol/L (21-32); Calcium, Blood 8.2 mg/dL (8.5-10.1); Chloride, Blood 108 mmol/L (98-108); Creatinine, Blood 0.41 mg/dL (0.40-1.00); Glomerular Filtration Rate >60 (60-); Glucose, Blood 88 mg/dL (70-99); Sodium, Blood 143 mmol/L (136-145)
--- NOTE | 2019-09-29 06:43 | NUR ---
SUMMARY PT HAS INCREASED CONFUSION THIS AM. PT WAS REPEATEDLY TRYING TO GET OUT OF BED. PT HAS BEEN REDIRECTABLE SO FAR. PT HAD NO COMPLAINTS OF DISCOMFORT OR SOB. PT CURRENTLY SLEEPING AND BREATHING EASY. CALL LIGHT IN REACH AND BED ALARM ON. WCTM.
[2019-09-29 08:52] LABS: Magnesium, Blood 1.4 mg/dL (1.6-2.4)
[2019-09-29 08:57] LABS: Thyroid Stimulating Hormone 3.42 uIU/mL (0.360-4.800)
--- NOTE | 2019-09-29 11:06 | NUR ---
ECHOCARDIOGRAM COMPLETED
--- NOTE | 2019-09-29 14:16 | NUR ---
PT IV INFILTRATED AT 1335. PHARMACY NOTIFED . POWER GLIDE INSERTED BY EVELIA COPE AND HEPARIN AND RESTART 1410. DOSE ADJUSTED BY PHARMACY AND THEY WERE NOTIFIED OF RESTART TIME.
--- NOTE | 2019-09-29 15:04 | NUR ---
Additional echo images using 0.50ml of Definity contrast completed.
--- NOTE | 2019-09-29 18:27 | NUR ---
Initial spiritual care note: Mrs. Dickey appears quite confused. She was sitting in chair at bedisde, but was trying to get up to "go get the truck." She was easily distracted through life-review conversation. But, she continued to randomly try to "get to the truck." At one point, she said she lives with her mom and sister. She also says her " a few months ago." She smiled easily with me and was very complimentary of staff. We had a eugenio, albeit disjointed, conversation. Upon chart review, I notice she is listed as Full Code, however physician's notes state she is to be DNR. No druze practices or preference. [facility] services will remain available.
--- NOTE | 2019-09-29 18:36 | NUR ---
ARRIVES TO ROOM ABOUT 1810 VIA W/C FROM 337. NEEDS A LOT OF CUES. IV RESTARTED AND WRAPPED. TOLERATED WELL. UNLABORED RESPIRATIONS. MULTIPLE BRUISES T/O HEALING SCABS T/O. WCTM
--- NOTE | 2019-09-30 03:55 | NUR ---
SHIFT SUMMARY: 83 Y/O SLENDER FEMALE RESTED COMFORTABLY ALL SHIFT; PT ABLE TO TRANSFER AND AMBULATE VIA WALKER TO BATHROOM X 1 STANDBY ASSIST; DENIES PAIN OR NAUSEA; BED ALARM APPLIED, BED LOW POSITION WITH CALL LIGHT AT SIDE.
[2019-09-30 05:15] LABS: BASOPHILS PERCENT AUTO 1 % (0-2); EOSINOPHILS PERCENT AUTO 5 % (0-6); Hematocrit 38.6 % (33.0-51.0); Hemoglobin 12.6 g/dL (11.5-16.0); IMMATURE GRAN ABSOLUTE AUTO 0.02 K/mm3 (0.00-0.10); IMMATURE GRAN PERCENT AUTO 0 % (0-1); LYMPHOCYTES PERCENT AUTO 42 % (21-46); MONOCYTES ABSOLUTE AUTO 0.76 K/mm3 (0.16-1.47); MONOCYTES PERCENT AUTO 9 % (4-13); Mean Corpuscular HGB 33.7 pg (26.0-34.0); Mean Corpuscular HGB Conc 32.6 g/dL (31.5-36.5); Mean Corpuscular Volume 103 fL (80-100); Mean Platelet Volume 9.7 fL (9.1-12.4); NEUTROPHILS ABSOLUTE AUTO 3.51 K/mm3 (1.96-9.15); NEUTROPHILS PERCENT AUTO 43 % (41-73); Platelet Count 325 K/mm3 (150-400); RDW Coefficient Variation 13.6 % (11.7-14.2); RDW Standard Deviation 51.9 fL (35.1-46.3); Red Blood Cell Count 3.74 M/mm3 (3.80-5.20); White Blood Cell Count 8.19 K/mm3 (4.00-11.30)
[2019-09-30 05:40] LABS: Anion Gap 7 mmol/L (6-16); Blood Urea Nitrogen 2 mg/dL (8-24); Bun/Creatinine Ratio 4.3 (12.0-20.0); CO2, Blood 25 mmol/L (21-32); Calcium, Blood 8.8 mg/dL (8.5-10.1); Chloride, Blood 109 mmol/L (98-108); Creatinine, Blood 0.47 mg/dL (0.40-1.00); Glomerular Filtration Rate >60 (60-); Glucose, Blood 96 mg/dL (70-99); Magnesium, Blood 1.5 mg/dL (1.6-2.4); Potassium, Blood 3.5 mmol/L (3.5-5.5); Sodium, Blood 141 mmol/L (136-145)
--- NOTE | 2019-09-30 11:36 | NUR ---
PER 'S OFFICE RECEIVED CONSULT. IS IN CLINIC TODAY AND HAS SURGERIES. UNABLE TO SAY WHEN HE WOULD BE MAKING HIS ROUNDS
--- NOTE | 2019-09-30 14:54 | NUR ---
CALLED DR. CAREY ABOUT SOME SORT OF SPECIAL DRESSINGS HE WANTED ON PATIENTS FOOT PER DAUGHTER. CARE PARTNER GIVEN OUR FAX NUMBER. MO NOTIFIED TO LET ME KNOW IF RECEIVED
--- NOTE | 2019-09-30 16:27 | NUR ---
NOTIFIED PATIENT WITH VISUAL HALLUCINATIONS. STS HAD ON ADMISSION, CONTINUE CIWA AND CAN MEDICATE W/LIBRIUM AND/OR ATIVAN. NO NEW ORDERS.
--- NOTE | 2019-09-30 18:33 | NUR ---
ALERT TO SELF. DURING DAY COOPERATIVE, BUT EVENING STARTED MORE VISUAL HALLUCINATIONS AND VERBALLY UNCOOPERATIVE W/SOME STAFF. AMBULATES SHORT DISTANCE W/WALKER AND STANDBY ASSIST. REQUESTS WHISKEY, BUT SEEMS TO BE OK WITH [facility]VARO MIST. STOOL SAMPLE SENT FOR GI PANEL. USES PHONE QUITE OFTEN TO CALL PACKAGING LINE ATTENDANT. PATIENT DOESN'T SEEM TO RETAIN INFO ON HOW TO USE CALL LIGHT. IV PATENT WITH FLUIDS INFUSING. PATIENT ATTEMPT TO PULL OUT IV X 2, BUT WAS UNSUCCESSFUL W/THIS RN PUTTING 2X2 UNDER TUBING AND ADJUSTING WRAPPING TO IV. IN RECLINER IN ROOM OR IN HALLWAY IN CHAIR A GOOD PART OF DAY. UNLABORED RESPIRATIONS. DENIES PAIN TO THIS RN. WCTM.
--- NOTE | 2019-09-30 21:05 | NUR ---
1946 PT PULLED IV OUT; ENTIRE GOWN AND LINEN CHANGED; ALERT TO PERSON ONLY; BED ALARM APPLIED.
[2019-09-30 23:33] LABS: Adenovirus F 40/41 Not Detected (NOT DETECT); Astrovirus Not Detected (NOT DETECT); Campylobacter Sp Not Detected (NOT DETECT); Cryptosporidium Not Detected (NOT DETECT); Cyclospora Cayetanensis Not Detected (NOT DETECT); E. Coli O157 Not Detected (NOT DETECT); Entamoeba Histolytica Not Detected (NOT DETECT); Enteroaggregative E. coli-EAEC Not Detected (NOT DETECT); Enteropathogenic E. coli-EPEC Not Detected (NOT DETECT); Enterotoxigenic E. coli-ETEC Not Detected (NOT DETECT); Giardia Lamblia Not Detected (NOT DETECT); Norovirus GI/GII Not Detected (NOT DETECT); Plesiomonas Shigelloides Not Detected (NOT DETECT); Rotavirus A Not Detected (NOT DETECT); Salmonella Sp Not Detected (NOT DETECT); Sapovirus Not Detected (NOT DETECT); Shiga Toxin-prod E. coli-STEC Not Detected (NOT DETECT); Shigella/Enteroin E. coli-EIEC Not Detected (NOT DETECT); Vibrio Cholerae Not Detected (NOT DETECT); Vibrio Sp Not Detected (NOT DETECT); Yersinia Enterocolitica Not Detected (NOT DETECT)
--- NOTE | 2019-10-01 04:11 | NUR ---
SHIFT SUMMARY: 83 Y/O FEMALE RESTED COMFORTABLY ALL SHIFT; PT ALERT TO PERSON ONLY AND REQUIRED REDIRECTION WITH ALL ACTIVITIES; DENIES PAIN OR NAUSEA; BED ALARM APPLIED, BED LOW POSITION WITH CALL LIGHT AT SIDE.
[2019-10-01 05:26] LABS: BASOPHILS ABSOLUTE AUTO 0.08 K/mm3 (0.00-0.23); BASOPHILS PERCENT AUTO 1 % (0-2); EOSINOPHILS ABSOLUTE AUTO 0.49 K/mm3 (0.00-0.68); EOSINOPHILS PERCENT AUTO 5 % (0-6); Hematocrit 35.8 % (33.0-51.0); Hemoglobin 11.5 g/dL (11.5-16.0); IMMATURE GRAN ABSOLUTE AUTO 0.02 K/mm3 (0.00-0.10); IMMATURE GRAN PERCENT AUTO 0 % (0-1); LYMPHOCYTES ABSOLUTE AUTO 2.86 K/mm3 (0.84-5.20); LYMPHOCYTES PERCENT AUTO 31 % (21-46); MONOCYTES ABSOLUTE AUTO 0.84 K/mm3 (0.16-1.47); MONOCYTES PERCENT AUTO 9 % (4-13); Mean Corpuscular HGB 34.1 pg (26.0-34.0); Mean Corpuscular HGB Conc 32.1 g/dL (31.5-36.5); Mean Platelet Volume 9.8 fL (9.1-12.4); NEUTROPHILS ABSOLUTE AUTO 4.84 K/mm3 (1.96-9.15); NEUTROPHILS PERCENT AUTO 53 % (41-73); Platelet Count 319 K/mm3 (150-400); RDW Coefficient Variation 13.5 % (11.7-14.2); RDW Standard Deviation 53.6 fL (35.1-46.3); Red Blood Cell Count 3.37 M/mm3 (3.80-5.20); White Blood Cell Count 9.13 K/mm3 (4.00-11.30)
[2019-10-01 05:36] LABS: Mean Corpuscular Volume 106 fL (80-100)
[2019-10-01 05:49] LABS: Anion Gap 5 mmol/L (6-16); Blood Urea Nitrogen 10 mg/dL (8-24); Bun/Creatinine Ratio 15.8 (12.0-20.0); CO2, Blood 27 mmol/L (21-32); Chloride, Blood 108 mmol/L (98-108); Creatinine, Blood 0.63 mg/dL (0.40-1.00); Glomerular Filtration Rate >60 (60-); Glucose, Blood 94 mg/dL (70-99); Potassium, Blood 3.9 mmol/L (3.5-5.5); Sodium, Blood 140 mmol/L (136-145)
--- NOTE | 2019-10-01 15:34 | NUR ---
SHIFT SUMMARY PT IS A/O TO HERSELF AND FAMILY BUT HAS BEEN CONFUSED AND AGITATED FOR MOST OF THE DAY. SHE IS REDIRECTABLE FOR SHORT PERIODS OF TIME. MEDS HAVE BEEN GIVEN PER DR LINN AND MILDLY EFFECTIVE. PT HAS BEEN ATTEMPTING TO CALL HER FAMILY ALL DAY. HER SON CAME TO VISIT FOR A WHILE THIS AFTERNOON BUT SOON HE LEFT SHE WAS UPSET ABOUT HIM NOT BEING THERE. BED ALARM IS ON FOR SAFETY. PT IS ABLE TO MAKE HER NEEDS KNOWN BUT IS IMPULSIVE AND HAS POOR SAFETY AWARENESS. SHE YELLS OUT FOR HELP WHEN NEEDED. CALL LIGHT IS IN REACH.
--- NOTE | 2019-10-02 05:29 | NUR ---
SHIFT SUMMARY PT HAS RESTED WELL THIS SHIFT. PT IRRITABLE AT TIMES, BUT MOST OF THE TIME SHE HAS BEEN PLESANT WITH STAFF. A/O TO SELF ONLY. SHE HAS DENIED PAIN OR NEEDS FOR MOST OF THE NIGHT. CIWA SCORE IS LOW, WITH NO S/S OF WITHDRAWAL. VITALS ARE STABLE. THERE HAVE BEEN NO ACUTE CHANGES TO REPORT. BED IN LOWEST POSITION, CALL LIGHT WITHIN REACH. WILL CONTINUE TO MONITOR AND REPORT TO ONCOMING RN.
[2019-10-02] MEDS ORDERED: Culturelle1 CAP PO (12:54)
[2019-10-02] MEDS ORDERED: ACET325 PO (12:54)
[2019-10-02] MEDS ORDERED: HYDR10 PO (12:54)
[2019-10-02] MEDS ORDERED: Anti-Diarrheal2 MG PO (12:55)
[2019-10-02] MEDS ORDERED: Seroquel Xr50 MG PO (12:56)
--- NOTE | 2019-10-02 15:21 | NUR ---
PT DCD HOME WITH FAMILY. MED REC FAXED TO PHARMACY ON FILE. SON TO SCHEDULE F/U APPT. ALL MEDS AND INSTRUCTIONS REVIEWED WITH SON. ALL QUESTIONS ANSWERED. IV REMOVED WITH NO ISSUE. ALL PERSONAL BELONGINGS SENT WITH PT. PT ASSISTED TO PRIVATE CAR. PT STABLE UPON DC.
== END 2019-10-02 15:04 | disposition home health service (06) | DRG 897 ==
LOC: ER 19:51 → MEDS 19:52
PROVIDERS: Family Medicine; Physician Assistant; ADMIT Hospitalist
DX: F10.129 Alcohol abuse with intoxication, unspecified (principal); A04.72 Enterocolitis due to Clostridium difficile, not specified as recurrent; E87.6 Hypokalemia; F03.90 Unspecified dementia, unspecified severity, without behavioral disturbance, psychotic disturbance, mood disturbance, and anxiety; Z66 Do not resuscitate; Z86.73 Personal history of transient ischemic attack (TIA), and cerebral infarction without residual deficits; I10 Essential (primary) hypertension; F32.9 Major depressive disorder, single episode, unspecified; W19.XXXA Unspecified fall, initial encounter; Y90.6 Blood alcohol level of 120-199 mg/100 ml; Z91.81 History of falling; S72.141D Displaced intertrochanteric fracture of right femur, subsequent encounter for closed fracture with routine healing
CPT/HCPCS: 0097U; 36415; 70450; 71046; 73502; 80048; 80053; 81001; 82550; 83735; 83880; 84100; 84443; 84484; 85025; 87086; 87324; 93005; 93010; 96361; 96365; 96366; 96368; 96372; 96375; 96376; 97110; 97116; 97162; 97166; 97530; 99285-25; A9270; A9270-GY; C8929; G0378; G0480; J0360; J1650; J2060; J3411; J3475; J3480; J7030; J7042; J7050; Q9957

== ENCOUNTER 2019-10-05 15:48 | Emergency (ER) | payer OTHER ==
[~2019-10-05] VITALS: Ht 172.7 cm; Wt 63.5 kg
[~2019-10-05 15:48] MED LIST changes: +Culturelle1 CAP PO; +HYDR10 PO; +QUET25 PO
[2019-10-05 16:38] LABS: BASOPHILS ABSOLUTE AUTO 0.08 K/mm3 (0.00-0.23); BASOPHILS PERCENT AUTO 1 % (0-2); EOSINOPHILS ABSOLUTE AUTO 0.53 K/mm3 (0.00-0.68); EOSINOPHILS PERCENT AUTO 6 % (0-6); Hematocrit 39.5 % (33.0-51.0); Hemoglobin 12.3 g/dL (11.5-16.0); IMMATURE GRAN ABSOLUTE AUTO 0.03 K/mm3 (0.00-0.10); IMMATURE GRAN PERCENT AUTO 0 % (0-1); LYMPHOCYTES ABSOLUTE AUTO 3.39 K/mm3 (0.84-5.20); LYMPHOCYTES PERCENT AUTO 36 % (21-46); MONOCYTES ABSOLUTE AUTO 1.03 K/mm3 (0.16-1.47); MONOCYTES PERCENT AUTO 11 % (4-13); Mean Corpuscular HGB 33.2 pg (26.0-34.0); Mean Corpuscular HGB Conc 31.1 g/dL (31.5-36.5); Mean Corpuscular Volume 107 fL (80-100); Mean Platelet Volume 9.7 fL (9.1-12.4); NEUTROPHILS ABSOLUTE AUTO 4.48 K/mm3 (1.96-9.15); NEUTROPHILS PERCENT AUTO 47 % (41-73); Platelet Count 336 K/mm3 (150-400); RDW Coefficient Variation 13.4 % (11.7-14.2); RDW Standard Deviation 53.1 fL (35.1-46.3); White Blood Cell Count 9.54 K/mm3 (4.00-11.30)
[2019-10-05 16:58] LABS: International Normalized Ratio 1.07; Prothrombin Time Results 11.4 Sec (9.7-11.5)
[2019-10-05 17:01] LABS: Alanine Aminotransfer (ALT/SGP 16 U/L (12-78); Albumin, Blood 2.9 g/dL (3.4-5.0); Albumin/Globulin Ratio 0.6 (0.8-1.8); Alk Phos 152 U/L (50-136); Anion Gap 6 mmol/L (6-16); Aspartate Aminotrans (AST/SGOT 27 U/L (12-37); Bilirubin, Total 0.2 mg/dL (0.1-1.0); Blood Urea Nitrogen 9 mg/dL (8-24); Bun/Creatinine Ratio 18.5 (12.0-20.0); CO2, Blood 27 mmol/L (21-32); Calcium, Blood 9.2 mg/dL (8.5-10.1); Chloride, Blood 106 mmol/L (98-108); Creatinine, Blood 0.49 mg/dL (0.40-1.00); Globulin, Blood 4.5 g/dL (2.2-4.0); Glomerular Filtration Rate >60 (60-); Glucose, Blood 81 mg/dL (70-99); Potassium, Blood 3.3 mmol/L (3.5-5.5); Sodium, Blood 139 mmol/L (136-145); Total Protein, Blood 7.4 g/dL (6.4-8.2)
[2019-10-05 17:12] LABS: Ethanol (Alcohol), Blood, Med <3 mg/dL
[2019-10-05 19:37] LABS: Source, Urine Catheter
[2019-10-05 19:42] LABS: Bilirubin, Urine Neg (Neg); Blood, Urine Neg (Neg); Glucose Qualitative, Urine Neg (Neg); Ketones, Urine 1+ (Neg); Leukocyte Esterase, Urine 1+ (Neg); Nitrite, Urine Neg (Neg); Protein, Urine Neg (Neg); Urobilinogen, Urine NORM (Normal)
[2019-10-05 19:54] LABS: U Amphetamine Screen Not Detected; U Barbituate Screen Not Detected; U Benzodiazapine Screen DETECTED; U Buprenorphine Screen Not Detected; U Cannabinoids Screen Not Detected; U Cocaine Screen Not Detected; U Methadone Screen Not Detected; U Methamphetamine Screen Not Detected; U Opiates Screen Not Detected; U Oxycodone Screen Not Detected; U Phencyclidine Screen Not Detected; U Propoxyphene Screen Not Detected
[2019-10-05 20:00] LABS: Appearance, Urine Clear (Clear); Color, Urine Yellow (P-Yellow)
[2019-10-05 20:01] LABS: Bacteria Rare /hpf; Red Blood Cells, Urine Not Seen /hpf (0-2); Squamous Epithelial Cells Not Seen /hpf (Few)
[2019-10-05] MEDS ORDERED: CULTURELLE CAP1 EACH PO (20:27)
== END 2019-10-05 22:22 | disposition home or self-care (01) ==
LOC: ER 15:48
PROVIDERS: Emergency Medicine
DX: R41.82 Altered mental status, unspecified (principal); I10 Essential (primary) hypertension; Z79.899 Other long term (current) drug therapy; Z88.5 Allergy status to narcotic agent
CPT/HCPCS: 51701; 70450; 71045; 72170; 80053; 81001; 82947; 85025; 85610; 87324; 87493; 93005; 93010; 96374-59; 99285-25; G0480

== ENCOUNTER → 2019-10-25 | Outpatient (CLI) | payer OTHER ==
[~2019-10-25] MED LIST changes: +CULTURELLE CAP1 EACH PO
[2019-10-25 12:26] LABS: Source, Urine Clean Catch
[2019-10-25 13:37] LABS: Bilirubin, Urine Neg (Neg); Blood, Urine 2+ (Neg); Glucose Qualitative, Urine Neg (Neg); Ketones, Urine Neg (Neg); Leukocyte Esterase, Urine 3+ (Neg); Nitrite, Urine Neg (Neg); Protein, Urine 2+ (Neg); Specific Gravity, Urine 1.015 (1.003-1.022); Urobilinogen, Urine NORM (Normal); pH, Urine 6.5 (5.0-8.0)
[2019-10-25 13:51] LABS: Appearance, Urine Cloudy (Clear); Color, Urine Yellow (P-Yellow)
[2019-10-25 13:55] LABS: Bacteria Many /hpf; Squamous Epithelial Cells Rare /hpf (Few); White Blood Cells, Urine TNTC /hpf (0-5)
== END | disposition home or self-care (01) ==
LOC: LAB 12:23 → LAB SHORT 12:23
PROVIDERS: Family Medicine
DX: Z09 Encounter for follow-up examination after completed treatment for conditions other than malignant neoplasm (principal); Z87.440 Personal history of urinary (tract) infections
CPT/HCPCS: 81001; 87077; 87086; 87186

== ENCOUNTER 2019-12-10 21:00 | Inpatient (IN) | payer OTHER ==
[~2019-12-10] VITALS: Ht 172.7 cm; Wt 54.7 kg
[~2019-12-10 21:00] MED LIST changes: -Cipro250 MG PO; -OLAN5 PO; -Questran4 GM PO; -VISBIOME 112.51 EACH PO
[2019-12-10 22:45] LABS: BASOPHILS ABSOLUTE AUTO 0.07 K/mm3 (0.00-0.23); BASOPHILS PERCENT AUTO 1 % (0-2); EOSINOPHILS ABSOLUTE AUTO 0.24 K/mm3 (0.00-0.68); EOSINOPHILS PERCENT AUTO 3 % (0-6); Hematocrit 42.6 % (33.0-51.0); Hemoglobin 14.7 g/dL (11.5-16.0); IMMATURE GRAN ABSOLUTE AUTO 0.02 K/mm3 (0.00-0.10); IMMATURE GRAN PERCENT AUTO 0 % (0-1); LYMPHOCYTES ABSOLUTE AUTO 3.84 K/mm3 (0.84-5.20); LYMPHOCYTES PERCENT AUTO 42 % (21-46); MONOCYTES ABSOLUTE AUTO 0.68 K/mm3 (0.16-1.47); MONOCYTES PERCENT AUTO 7 % (4-13); Mean Corpuscular HGB Conc 34.5 g/dL (31.5-36.5); Mean Corpuscular Volume 96 fL (80-100); Mean Platelet Volume 9.3 fL (9.1-12.4); NEUTROPHILS ABSOLUTE AUTO 4.41 K/mm3 (1.96-9.15); NEUTROPHILS PERCENT AUTO 48 % (41-73); Platelet Count 298 K/mm3 (150-400); RDW Coefficient Variation 14.9 % (11.7-14.2); RDW Standard Deviation 52.1 fL (35.1-46.3); Red Blood Cell Count 4.45 M/mm3 (3.80-5.20); White Blood Cell Count 9.26 K/mm3 (4.00-11.30)
[2019-12-10 23:04] LABS: Alanine Aminotransfer (ALT/SGP 14 U/L (12-78); Albumin, Blood 3.2 g/dL (3.4-5.0); Albumin/Globulin Ratio 0.7 (0.8-1.8); Alk Phos 150 U/L (50-136); Anion Gap 10 mmol/L (6-16); Aspartate Aminotrans (AST/SGOT 31 U/L (12-37); Bilirubin, Total 0.6 mg/dL (0.1-1.0); Blood Urea Nitrogen 5 mg/dL (8-24); Bun/Creatinine Ratio 8.1 (12.0-20.0); CO2, Blood 30 mmol/L (21-32); Calcium, Blood 8.7 mg/dL (8.5-10.1); Chloride, Blood 99 mmol/L (98-108); Creatinine, Blood 0.62 mg/dL (0.40-1.00); Globulin, Blood 4.5 g/dL (2.2-4.0); Glomerular Filtration Rate >60 (60-); Glucose, Blood 96 mg/dL (70-99); Potassium, Blood 2.3 mmol/L (3.5-5.5); Sodium, Blood 139 mmol/L (136-145); Total Protein, Blood 7.7 g/dL (6.4-8.2)
[2019-12-11 00:18] LABS: Source, Urine Clean Catch
[2019-12-11 00:20] LABS: Bilirubin, Urine Neg (Neg); Blood, Urine 3+ (Neg); Glucose Qualitative, Urine Neg (Neg); Ketones, Urine Neg (Neg); Leukocyte Esterase, Urine 3+ (Neg); Nitrite, Urine Neg (Neg); Protein, Urine 2+ (Neg); Urobilinogen, Urine NORM (Normal)
[2019-12-11 00:24] LABS: Appearance, Urine Hazy (Clear); Color, Urine Pale Yellow (P-Yellow)
[2019-12-11 00:26] LABS: Bacteria Many /hpf; Red Blood Cells, Urine 0-2 /hpf (0-2); Squamous Epithelial Cells Few /hpf (Few); Transitional Epithelial Cells Few /hpf (0-Rare); White Blood Cells, Urine 50-100 /hpf (0-5)
[2019-12-11 03:50] LABS: Campylobacter Sp Not Detected (NOT DETECT)
[2019-12-11 03:51] LABS: Adenovirus F 40/41 Not Detected (NOT DETECT); Astrovirus Not Detected (NOT DETECT); Cryptosporidium Not Detected (NOT DETECT); Cyclospora Cayetanensis Not Detected (NOT DETECT); E. Coli O157 Not Detected (NOT DETECT); Entamoeba Histolytica Not Detected (NOT DETECT); Enteroaggregative E. coli-EAEC Not Detected (NOT DETECT); Enteropathogenic E. coli-EPEC Not Detected (NOT DETECT); Enterotoxigenic E. coli-ETEC Not Detected (NOT DETECT); Giardia Lamblia Not Detected (NOT DETECT); Norovirus GI/GII Not Detected (NOT DETECT); Plesiomonas Shigelloides Not Detected (NOT DETECT); Rotavirus A Not Detected (NOT DETECT); Salmonella Sp Not Detected (NOT DETECT); Sapovirus Not Detected (NOT DETECT); Shiga Toxin-prod E. coli-STEC Not Detected (NOT DETECT); Shigella/Enteroin E. coli-EIEC Not Detected (NOT DETECT); Vibrio Cholerae Not Detected (NOT DETECT); Vibrio Sp Not Detected (NOT DETECT); Yersinia Enterocolitica Not Detected (NOT DETECT)
--- NOTE | 2019-12-11 04:05 | NUR ---
ARRIVAL TO UNIT/SHIFT SUMMARY PT [id number], UNABLE TO TELL DATE. PLEASANT AND COOPERATIVE FOLLOWS DIRECTIONS WELL, INC OF STOOL AND BLADDER BUT CAN TELL WHEN SHE IS ABOUT TO GO. CHRONIC DIARHHEA, NO STOOL ON SHIFT. REPORTS ITCHING AND BURNING WITH [place] AREA, REDNESS NOTED. POTASSIUM INFUSING IN IV AT THIS TIME. PT TOLERATING WELL, DENIES N/V AND PAIN. PT HAS BEEN CALLING APPROPRIATLY USING CALL LIGHT. BED ALARM ON. NORMA FLUIDS INFUSING PER EMAR. PT RESTING IN BED DURING SHIFT.
[2019-12-11 04:54] LABS: BASOPHILS ABSOLUTE AUTO 0.07 K/mm3 (0.00-0.23); BASOPHILS PERCENT AUTO 1 % (0-2); EOSINOPHILS ABSOLUTE AUTO 0.27 K/mm3 (0.00-0.68); EOSINOPHILS PERCENT AUTO 2 % (0-6); Hematocrit 42.8 % (33.0-51.0); Hemoglobin 14.6 g/dL (11.5-16.0); IMMATURE GRAN ABSOLUTE AUTO 0.04 K/mm3 (0.00-0.10); IMMATURE GRAN PERCENT AUTO 0 % (0-1); LYMPHOCYTES ABSOLUTE AUTO 2.55 K/mm3 (0.84-5.20); LYMPHOCYTES PERCENT AUTO 21 % (21-46); MONOCYTES PERCENT AUTO 10 % (4-13); Mean Corpuscular HGB 32.4 pg (26.0-34.0); Mean Corpuscular HGB Conc 34.1 g/dL (31.5-36.5); Mean Corpuscular Volume 95 fL (80-100); Mean Platelet Volume 9.5 fL (9.1-12.4); NEUTROPHILS ABSOLUTE AUTO 7.83 K/mm3 (1.96-9.15); NEUTROPHILS PERCENT AUTO 66 % (41-73); Platelet Count 272 K/mm3 (150-400); RDW Standard Deviation 51.3 fL (35.1-46.3); Red Blood Cell Count 4.51 M/mm3 (3.80-5.20); White Blood Cell Count 11.96 K/mm3 (4.00-11.30)
[2019-12-11 05:30] LABS: Alanine Aminotransfer (ALT/SGP 11 U/L (12-78); Albumin, Blood 3.1 g/dL (3.4-5.0); Albumin/Globulin Ratio 0.7 (0.8-1.8); Alk Phos 144 U/L (50-136); Anion Gap 10 mmol/L (6-16); Aspartate Aminotrans (AST/SGOT 37 U/L (12-37); Bilirubin, Total 0.9 mg/dL (0.1-1.0); Blood Urea Nitrogen 4 mg/dL (8-24); Bun/Creatinine Ratio 7.8 (12.0-20.0); CO2, Blood 28 mmol/L (21-32); Calcium, Blood 8.5 mg/dL (8.5-10.1); Chloride, Blood 103 mmol/L (98-108); Creatinine, Blood 0.52 mg/dL (0.40-1.00); Globulin, Blood 4.4 g/dL (2.2-4.0); Glomerular Filtration Rate >60 (60-); Glucose, Blood 101 mg/dL (70-99); Potassium, Blood 2.8 mmol/L (3.5-5.5); Sodium, Blood 141 mmol/L (136-145); Total Protein, Blood 7.5 g/dL (6.4-8.2)
--- NOTE | 2019-12-11 06:29 | NUR ---
Skin observation Pt skin on bottom and espinoza area is very red. Pt c/o itching. Applied Calazime cream to both areas.
--- NOTE | 2019-12-11 13:56 | NUR ---
PT TRANSFERRED FROM THE FLOOR. SHE IS A/O TO THE SITUATION AND HER FAMILY AND IS AT HER BASELINE. SHE HAD DISCONNECTED HER IV FLUIDS DURING TRANSPORT, WAS NOTIFIED AND FLUIDS WILL BE RESTARTED AND HE WILL BE BY TO SEE THE PT. THE PT REQUESTED A SODA TO DRINK AND FOR HER DAUGHTER TO BE NOTIFIED. SHE IS RESTNG IN BED FELIZ IN PLACE, WATCHING TV AND VERBALIZES AN UNDERSTANDING OF THE USE OF HER CALL LIGHT. THE BED ALARM IS ON FOR SAFETY AND SHE IS VISIBLE ON CAMERA.
--- NOTE | 2019-12-11 14:45 | NUR ---
TRANSFER TO SCU PATIENT TRANSERED TO [facility] UNIT DUE TO CONFUSION AND FALL RISK. REPORT GIVEN TO RECEIVING NURSE SANDY.
--- NOTE | 2019-12-11 15:48 | NUR ---
SHIFT SUMMARY PT IS A/O TO HERSELF AND HER FAMILY. THE DOCTOR CAME TO SEE HER AT THE BEDSIDE. WHEN SHE FIRST ARRIVED TO HER NEW ROOM SHE WAS CALM AND COOPERATIVE WITH HER CARE. SHE WAS ASSISTED TO THE BSC TO VOID AND CONTINUES TO HAVE LOOSE STOOL. A SECOND IV WAS STARTED FOR IV ABO. BUT SHORTLY AFTER GETTING BACK IN BED SHE UNTIED HER FELIZ AND WAS TRYING TO PULL HER IVS OUT AND GET OUT OF BED. THE DOCTOR WAS NOTIFIED AND WRIST RESTRAINTS WERE PLACED. THE PT IS NOW HIGHLY AGITATED AND YELLING OUT INTO THE ODOM. THE PT IS VISIBLE ON THE CAMERA AND BED ALARM IS ON FOR HER SAFETY. THE PT IS ABLE TO MAKE HER NEEDS KNOWN.
--- NOTE | 2019-12-12 00:59 | NUR ---
RESTRAINTS DC'D PT SLEEPING COMFORTABLY IN BED WITH NO S/S OF DISTRESS. NO LONGER AGITATED, YELLING OUT, ATTEMPTING TO GET OUT OF BED, OR PULLING ON HER LINES. REMOVED RESTRAINTS AND DC'D ORDER. FAN BALANCERPRISCA KUO NOTIFIED. BED ALARM IN PLACE FOR SAFETY. CALL LIGHT WITHIN REACH, WILL CONTINUE TO MONITOR.
--- NOTE | 2019-12-12 05:08 | NUR ---
SHIFT SUMMARY PT ANXIOUS AND AGITATED FOR THE FIRST HALF OF SHIFT. SHE WAS YELLING/CALLING OUT, RESTLESS, AND ATTEMPTING TO GET OOB OF BED DESPITE REDIRECTION. PT IS A/OX1 AND IS DIFFICULT TO REDIRECT. PT RECEIVED SEROQUELL HS PER ORDERS, WHICH DID SEEM TO HELP. RESTRAINTS WERE DC'D. SHE HAS SLEPT WELL FOR THE SECOND HALF OF THE SHIFT. PT DID ATTEMPT TO GET OOB ONCE AFTER REMOVING RESTRAINTS. PT IS IMPULSIVE, AND BECAME EASILY AGITATED WHEN STAFF TRIED TO DIRECT HER WHEN GETTING OOB OF BED. BUT OVERALL SHE HAS BECOME MUCH MORE DIRECTABLE. SHE IS A 1-2 PERSON ASSIST TO THE BSC. GAIT IS UNSTEADY AND WEAK. SHE HAS URGENCY AND INCONTINENCE. SHE HAS REQUIRED A FEW LINEN AND ATTEND CHANGES THIS SHIFT. PT DENIED PO FLUIDS OR NUTRITION WHEN OFFERED. A/OX1 WITH NONSENSICAL SPEECH. HYPERTENSIVE AT TIMES, PRN HYDRALYZINE GIVEN WITH AFFECT. NO OTHER CHANGES TO REPORT. BED IN LOWEST POSITION, CALL LIGHT WITHIN REACH. WILL CONTINUE TO MONITOR AND REPORT TO ONCOMING RN.
[2019-12-12 05:50] LABS: Anion Gap 8 mmol/L (6-16); Blood Urea Nitrogen 5 mg/dL (8-24); Bun/Creatinine Ratio 9.2 (12.0-20.0); CO2, Blood 26 mmol/L (21-32); Calcium, Blood 8.3 mg/dL (8.5-10.1); Chloride, Blood 106 mmol/L (98-108); Creatinine, Blood 0.54 mg/dL (0.40-1.00); Glomerular Filtration Rate >60 (60-); Glucose, Blood 98 mg/dL (70-99); Magnesium, Blood 1.3 mg/dL (1.6-2.4); Potassium, Blood 3.7 mmol/L (3.5-5.5); Sodium, Blood 140 mmol/L (136-145)
--- NOTE | 2019-12-12 05:57 | NUR ---
TACHY PT HAS BEEN TACY THIS SHIFT. PT HR IN THE 140'S LIKELY DUE TO AGITATION AND TRYING TO CLIMB OOB. TOOK REPEAT VITALS, PT HR STILL REMAINS TACHY BUT IS IN THE LOW TEEN'S. PT APPEARS WITHOUT DISTRESS AND IS RESTING, PT OTHER VITALS ARE WITHIN HER TRENDS. DISCUSSED WITH SEB NIEVES RN. STATES NO NEED TO CALL DR AT THIS TIME. BUT TO NOTIFY DAYSHIFT RN SO THAT IT CAN BE ADDRESSED BY DAYSHIFT ATTENDING.
--- NOTE | 2019-12-12 10:21 | NUR ---
PT GAVE VERBAL PERMISSION FOR STAFF TO SPEAK TO HER SISTER ZIGGY. ZIGGY WAS UPDATED ON PT CONDITION, SHE STATED THE PT CAN GET "ALL FIRED UP" AT TIMES WHEN SHE SPEAKS TO HER AND SHE DOES NOT WANT TO DISRUPT HER. PT WANTED STAFF TO CONVEY THAT SHE WAS DOING WELL BUT "JUST A LITTLE SLEEPY TODAY."
--- NOTE | 2019-12-12 18:33 | NUR ---
SHIFT SUMMARY- PT BECAME IRRITABLE ONCE DURRING THE SHIFT MEDICATED WITH PRN ZYPREXA AND THE PT BECAME MORE REDIRECTABLE, SHE STILL BECOMES IRRITATED AND CALLS OUT BECAUSE SHE IS CONFUSED. PT JUST MADE A PHONE CALL TO A FAMILY MEMBER AND WAS TELLING THEM SHE WAS IN [facility] AT [facility]. SO SHE IS A BIT MOR ALERT THAN SHE WAS AT THE START OF THE SHIFT. SPOKE TO HER SISTER ZIGGY, SPOKE TO HER CAREGIVER PHONE NUMBER IS ON THE FRONT OF THE CHART. CAREGIVER STATED DISCHARGE PLANNING SHOULD CALL HER AT THE TIME OF DISCHARGE SHE WILL BE THE ONE TO TRANSPORT THE PT HOME. PT GAVE VERBAL CONSENT FOR STAFF TO SPEAK TO HER CAREGIVER AND HER SISTER ZIGGY. WILL PASS ON TO NIGHT RN WELL. PT HAS NOT NEEDED ANY PAIN MEDICATION T/O THE DAY. PT IS ON CAMERA AND HAS BEEN A BIT MORE ACTIVE THIS EVENING, BUT IS STILL REDIRECTABLE. RESTRAINTS WERE DC'D IN THE NIGHT.
--- NOTE | 2019-12-13 05:24 | NUR ---
GEM STONE CUTTER SUMMARY SEVERAL ATTEMPTS TO GET OUT OF BED DURING THE FIRST HALF OF THE SHIFT. SHE WAS EASILY REDIRECTED. ALERT & ORIENTED TO PERSON AND PLACE. SLEPT COMFORTABLY DURING THE SECOND HALF OF SHIFT. NO SIGNS OF AGITATION OR DISTRESS. BED ALARM ON AND CALL LIGHT PLACED WITHIN REACH. WILL CONTINUE TO MONITOR.
[2019-12-13 05:31] LABS: BASOPHILS ABSOLUTE AUTO 0.04 K/mm3 (0.00-0.23); BASOPHILS PERCENT AUTO 1 % (0-2); EOSINOPHILS ABSOLUTE AUTO 0.64 K/mm3 (0.00-0.68); EOSINOPHILS PERCENT AUTO 8 % (0-6); Hematocrit 42.2 % (33.0-51.0); Hemoglobin 13.9 g/dL (11.5-16.0); IMMATURE GRAN ABSOLUTE AUTO 0.02 K/mm3 (0.00-0.10); IMMATURE GRAN PERCENT AUTO 0 % (0-1); LYMPHOCYTES ABSOLUTE AUTO 3.31 K/mm3 (0.84-5.20); LYMPHOCYTES PERCENT AUTO 42 % (21-46); MONOCYTES ABSOLUTE AUTO 0.72 K/mm3 (0.16-1.47); MONOCYTES PERCENT AUTO 9 % (4-13); Mean Corpuscular HGB 32.5 pg (26.0-34.0); Mean Corpuscular HGB Conc 32.9 g/dL (31.5-36.5); Mean Platelet Volume 9.2 fL (9.1-12.4); NEUTROPHILS ABSOLUTE AUTO 3.24 K/mm3 (1.96-9.15); NEUTROPHILS PERCENT AUTO 41 % (41-73); Platelet Count 246 K/mm3 (150-400); RDW Coefficient Variation 15.7 % (11.7-14.2); RDW Standard Deviation 55.5 fL (35.1-46.3); Red Blood Cell Count 4.28 M/mm3 (3.80-5.20); White Blood Cell Count 7.97 K/mm3 (4.00-11.30)
[2019-12-13 05:37] LABS: Mean Corpuscular Volume 99 fL (80-100)
[2019-12-13 05:56] LABS: Anion Gap 8 mmol/L (6-16); Blood Urea Nitrogen 6 mg/dL (8-24); Bun/Creatinine Ratio 9.7 (12.0-20.0); CO2, Blood 27 mmol/L (21-32); Calcium, Blood 8.5 mg/dL (8.5-10.1); Chloride, Blood 107 mmol/L (98-108); Creatinine, Blood 0.62 mg/dL (0.40-1.00); Glomerular Filtration Rate >60 (60-); Glucose, Blood 92 mg/dL (70-99); Sodium, Blood 142 mmol/L (136-145)
[2019-12-13 05:57] LABS: Potassium, Blood 2.4 mmol/L (3.5-5.5)
[2019-12-13] MEDS ORDERED: AMLO5 PO (13:01)
[2019-12-13] MEDS ORDERED: Questran4 GM PO (13:03)
[2019-12-13] MEDS ORDERED: OLAN5 PO (13:04)
[2019-12-13] MEDS ORDERED: VISBIOME 112.51 EACH PO (13:04)
[2019-12-13] MEDS ORDERED: Cipro250 MG PO (13:06)
--- NOTE | 2019-12-13 15:54 | NUR ---
PT DISCHARGED AT 1500 WITH CAREGIVER TO TRANSPORT HOME. ALL PAPERWORK AND EDUCATIONAL MATERIAL REVIEWED AND SIGNED. PT AOX3 WITH CONFUSION NO DISTRESS NOTED. PT ESCORTED WITH PERSONAL BELONGINGS IN WHEELCHAIR TO N ENTRANCE.
== END 2019-12-13 14:50 | disposition home or self-care (01) | DRG 690 ==
LOC: ER 21:00 → MEDS 21:01 → ER 21:01 → MEDS 21:01 → ENPENDDIS 12-13 09:00 → MEDS 12-13 14:50
PROVIDERS: Emergency Medicine; Hospitalist; Internal Medicine; ADMIT Internal Medicine
DX: N39.0 Urinary tract infection, site not specified (principal); F03.91 Unspecified dementia, unspecified severity, with behavioral disturbance; B96.89 Other specified bacterial agents as the cause of diseases classified elsewhere; E86.0 Dehydration; E87.6 Hypokalemia; K52.9 Noninfective gastroenteritis and colitis, unspecified; I10 Essential (primary) hypertension; F32.9 Major depressive disorder, single episode, unspecified; Z86.73 Personal history of transient ischemic attack (TIA), and cerebral infarction without residual deficits; Z78.1 Physical restraint status
CPT/HCPCS: 0097U; 36415; 80048; 80053; 81001; 83735; 84132; 85025; 87077; 87086; 87186; 87324; 93005; 93010; 96365; 99284-25; A9270; J0360; J0696; J1650; J2060; J2185; J3480; J7030; J7050

== ENCOUNTER → 2019-12-10 | Outpatient (CLI) | payer OTHER ==
[~2019-12-10] MED LIST changes: +Cipro250 MG PO; +OLAN5 PO; +Questran4 GM PO; +VISBIOME 112.51 EACH PO
[2019-12-10 11:58] LABS: Hematocrit 41.9 % (33.0-51.0); Hemoglobin 13.9 g/dL (11.5-16.0); Mean Corpuscular HGB 31.9 pg (26.0-34.0); Mean Corpuscular HGB Conc 33.2 g/dL (31.5-36.5); Mean Corpuscular Volume 96 fL (80-100); Mean Platelet Volume 9.5 fL (9.1-12.4); Platelet Count 263 K/mm3 (150-400); RDW Coefficient Variation 14.8 % (11.7-14.2); RDW Standard Deviation 52.5 fL (35.1-46.3); Red Blood Cell Count 4.36 M/mm3 (3.80-5.20); White Blood Cell Count 10.51 K/mm3 (4.00-11.30)
[2019-12-10 12:19] LABS: Alanine Aminotransfer (ALT/SGP 13 U/L (12-78); Albumin, Blood 3.1 g/dL (3.4-5.0); Albumin/Globulin Ratio 0.8 (0.8-1.8); Alk Phos 137 U/L (50-136); Anion Gap 12 mmol/L (6-16); Aspartate Aminotrans (AST/SGOT 29 U/L (12-37); Bilirubin, Total 0.9 mg/dL (0.1-1.0); Blood Urea Nitrogen 4 mg/dL (8-24); Bun/Creatinine Ratio 7.8 (12.0-20.0); CO2, Blood 26 mmol/L (21-32); Chloride, Blood 101 mmol/L (98-108); Creatinine, Blood 0.52 mg/dL (0.40-1.00); Glomerular Filtration Rate >60 (60-); Glucose, Blood 135 mg/dL (70-99); Potassium, Blood 2.4 mmol/L (3.5-5.5); Sodium, Blood 139 mmol/L (136-145); Total Protein, Blood 7.1 g/dL (6.4-8.2)
== END | disposition home or self-care (01) ==
LOC: OLS 09:39 → LAB SHORT 09:39
PROVIDERS: Family Medicine
DX: E46 Unspecified protein-calorie malnutrition (principal); I11.0 Hypertensive heart disease with heart failure; I50.9 Heart failure, unspecified; R19.7 Diarrhea, unspecified; Z87.440 Personal history of urinary (tract) infections
CPT/HCPCS: 80053; 85027

== ENCOUNTER 2021-03-19 16:32 | Inpatient (IN) | payer OTHER ==
[~2021-03-19] VITALS: Ht 172.7 cm; Wt 59.3 kg
[~2021-03-19 16:32] MED LIST changes: +Amlodipine Bes2.5 MG PO; +Cipro250 MG PO; +LIDO700A20 TOP; +Macrobid 100 M100 MG PO; +OLAN5 PO; +Questran4 GM PO; +Roxicodone5 MG PO; +VISBIOME 112.51 EACH PO
[2021-03-19 17:22] LABS: BASOPHILS ABSOLUTE AUTO 0.04 K/mm3 (0.00-0.23); BASOPHILS PERCENT AUTO 0 % (0-2); EOSINOPHILS ABSOLUTE AUTO 0.14 K/mm3 (0.00-0.68); EOSINOPHILS PERCENT AUTO 1 % (0-6); Hematocrit 51.6 % (33.0-51.0); Hemoglobin 17.6 g/dL (11.5-16.0); IMMATURE GRAN ABSOLUTE AUTO 0.07 K/mm3 (0.00-0.10); IMMATURE GRAN PERCENT AUTO 0 % (0-1); LYMPHOCYTES ABSOLUTE AUTO 1.03 K/mm3 (0.84-5.20); LYMPHOCYTES PERCENT AUTO 7 % (21-46); MONOCYTES ABSOLUTE AUTO 1.36 K/mm3 (0.16-1.47); MONOCYTES PERCENT AUTO 9 % (4-13); Mean Corpuscular HGB 33.9 pg (26.0-34.0); Mean Corpuscular HGB Conc 34.1 g/dL (31.5-36.5); Mean Corpuscular Volume 99 fL (80-100); Mean Platelet Volume 9.5 fL (9.1-12.4); NEUTROPHILS ABSOLUTE AUTO 13.32 K/mm3 (1.96-9.15); NEUTROPHILS PERCENT AUTO 83 % (41-73); Platelet Count 387 K/mm3 (150-400); RDW Coefficient Variation 18.4 % (11.7-14.2); RDW Standard Deviation 66.1 fL (35.1-46.3); Red Blood Cell Count 5.19 M/mm3 (3.80-5.20); White Blood Cell Count 15.96 K/mm3 (4.00-11.30)
[2021-03-19 17:48] LABS: Troponin I 0.298 ng/mL (0.000-0.040)
[2021-03-19 17:51] LABS: Alanine Aminotransfer (ALT/SGP 14 U/L (12-78); Albumin/Globulin Ratio 0.5 (0.8-1.8); Alk Phos 175 U/L (50-136); Anion Gap 10 mmol/L (6-16); Aspartate Aminotrans (AST/SGOT 40 U/L (12-37); Bilirubin, Total 1.1 mg/dL (0.1-1.0); Blood Urea Nitrogen 20 mg/dL (8-24); Bun/Creatinine Ratio 24.6 (12.0-20.0); CO2, Blood 21 mmol/L (21-32); Calcium, Blood 9.4 mg/dL (8.5-10.1); Chloride, Blood 104 mmol/L (98-108); Creatinine, Blood 0.81 mg/dL (0.40-1.00); Globulin, Blood 5.6 g/dL (2.2-4.0); Glomerular Filtration Rate >60 (60-); Glucose, Blood 98 mg/dL (70-99); Potassium, Blood 4.5 mmol/L (3.5-5.5); Sodium, Blood 135 mmol/L (136-145); Total Protein, Blood 8.6 g/dL (6.4-8.2)
[2021-03-19 19:35] LABS: SARS-Cov-2 (COVID-19) PCR, MMC POSITIVE (NEGATIVE)
[2021-03-19] MEDS ORDERED: OLANZAPINE PO (21:21)
[2021-03-19] MEDS ORDERED: Naproxen375 M1 PO (21:22)
[2021-03-19 22:42] LABS: Source, Urine Clean Catch
[2021-03-19 22:45] LABS: Appearance, Urine Turbid (Clear); Bilirubin, Urine Neg (Neg); Blood, Urine 5+ (Neg); Color, Urine Amber (P-Yellow); Glucose Qualitative, Urine Neg (Neg); Ketones, Urine 1+ (Neg); Leukocyte Esterase, Urine 3+ (Neg); Nitrite, Urine Pos (Neg); Protein, Urine 3+ (Neg); Specific Gravity, Urine 1.015 (1.003-1.022); Urobilinogen, Urine 1+ (Normal)
[2021-03-19 22:54] LABS: Bacteria Many /hpf; Red Blood Cells, Urine 0-2 /hpf (0-2); Squamous Epithelial Cells Few /hpf (Few); White Blood Cells, Urine TNTC /hpf (0-5)
[2021-03-19 23:56] LABS: Troponin I 0.33 ng/mL (0.000-0.040)
[2021-03-20 04:59] LABS: BASOPHILS ABSOLUTE AUTO 0.01 K/mm3 (0.00-0.23); BASOPHILS PERCENT AUTO 0 % (0-2); EOSINOPHILS PERCENT AUTO 0 % (0-6); Hematocrit 41.5 % (33.0-51.0); Hemoglobin 14.3 g/dL (11.5-16.0); IMMATURE GRAN ABSOLUTE AUTO 0.05 K/mm3 (0.00-0.10); IMMATURE GRAN PERCENT AUTO 1 % (0-1); LYMPHOCYTES PERCENT AUTO 9 % (21-46); MONOCYTES ABSOLUTE AUTO 0.13 K/mm3 (0.16-1.47); MONOCYTES PERCENT AUTO 1 % (4-13); Mean Corpuscular HGB Conc 34.5 g/dL (31.5-36.5); Mean Corpuscular Volume 102 fL (80-100); Mean Platelet Volume 9.4 fL (9.1-12.4); NEUTROPHILS ABSOLUTE AUTO 8.39 K/mm3 (1.96-9.15); NEUTROPHILS PERCENT AUTO 90 % (41-73); Platelet Count 290 K/mm3 (150-400); Red Blood Cell Count 4.09 M/mm3 (3.80-5.20); White Blood Cell Count 9.38 K/mm3 (4.00-11.30)
[2021-03-20 05:23] LABS: Troponin I 0.254 ng/mL (0.000-0.040)
[2021-03-20 05:29] LABS: Alanine Aminotransfer (ALT/SGP 11 U/L (12-78); Albumin, Blood 2.2 g/dL (3.4-5.0); Albumin/Globulin Ratio 0.5 (0.8-1.8); Alk Phos 137 U/L (50-136); Anion Gap 12 mmol/L (6-16); Aspartate Aminotrans (AST/SGOT 25 U/L (12-37); Bilirubin, Total 0.5 mg/dL (0.1-1.0); Blood Urea Nitrogen 21 mg/dL (8-24); Bun/Creatinine Ratio 29.8 (12.0-20.0); CO2, Blood 19 mmol/L (21-32); Chloride, Blood 107 mmol/L (98-108); Globulin, Blood 4.4 g/dL (2.2-4.0); Glomerular Filtration Rate >60 (60-); Glucose, Blood 134 mg/dL (70-99); Sodium, Blood 138 mmol/L (136-145)
[2021-03-20 05:30] LABS: Total Protein, Blood 6.6 g/dL (6.4-8.2)
[2021-03-21 08:10] LABS: HBSAG SCREEN Negative (Negative); HEP A AB, IGM Negative (Negative); HEP B CORE AB, TOT Negative (Negative); HEP C VIRUS AB <0.1 (0.0-0.9)
[2021-03-23 07:32] LABS: Albumin, Blood 2.1 g/dL (3.4-5.0); Anion Gap 7 mmol/L (6-16); Blood Urea Nitrogen 22 mg/dL (8-24); Bun/Creatinine Ratio 41.4 (12.0-20.0); CO2, Blood 22 mmol/L (21-32); Calcium, Blood 8.4 mg/dL (8.5-10.1); Chloride, Blood 108 mmol/L (98-108); Creatinine, Blood 0.53 mg/dL (0.40-1.00); Glomerular Filtration Rate >60 (60-); Glucose, Blood 84 mg/dL (70-99); Magnesium, Blood 1.8 mg/dL (1.6-2.4); Phosphorus, Blood 2.7 mg/dL (2.5-4.9); Potassium, Blood 4.6 mmol/L (3.5-5.5); Sodium, Blood 137 mmol/L (136-145)
[2021-03-25] MEDS ORDERED: BENZ100A PO (08:55)
[2021-03-25] MEDS ORDERED: MULVITA PO (08:55)
[2021-03-25] MEDS ORDERED: ACET325 PO (08:55)
[2021-03-25] MEDS ORDERED: ELIQUIS5 M2 PO (08:55)
== END 2021-03-25 09:48 | DRG 177 ==
LOC: ER 16:32 → MEDS 22:43 → ERHOLD 22:43 → ER 22:43 → MEDS 03-20 01:20
PROVIDERS: Internal Medicine; Physician Assistant; Student in an Organized Health Care Education/Training Program; ADMIT Hospitalist
PROC: 8E0ZXY6 Isolation (ICD-10-PCS; principal; 2021-03-19)
PROC: XW033E5 Introduction of Remdesivir Anti-infective into Peripheral Vein, Percutaneous Approach, New Technology Group 5 (ICD-10-PCS; 2021-03-20)
PROC: 3E0333Z Introduction of Anti-inflammatory into Peripheral Vein, Percutaneous Approach (ICD-10-PCS; 2021-03-20)
DX: U07.1 COVID-19 (principal); J96.01 Acute respiratory failure with hypoxia; I26.99 Other pulmonary embolism without acute cor pulmonale; I24.8 Other forms of acute ischemic heart disease; E44.0 Moderate protein-calorie malnutrition; N39.0 Urinary tract infection, site not specified; I10 Essential (primary) hypertension; F41.9 Anxiety disorder, unspecified; F32.9 Major depressive disorder, single episode, unspecified; F03.90 Unspecified dementia, unspecified severity, without behavioral disturbance, psychotic disturbance, mood disturbance, and anxiety; S92.901A Unspecified fracture of right foot, initial encounter for closed fracture; F10.10 Alcohol abuse, uncomplicated; R74.01 Elevation of levels of liver transaminase levels; B96.20 Unspecified Escherichia coli [E. coli] as the cause of diseases classified elsewhere; Z96.641 Presence of right artificial hip joint; Z87.19 Personal history of other diseases of the digestive system; Z86.73 Personal history of transient ischemic attack (TIA), and cerebral infarction without residual deficits; Z90.49 Acquired absence of other specified parts of digestive tract; Z90.710 Acquired absence of both cervix and uterus; Z88.5 Allergy status to narcotic agent; Z79.899 Other long term (current) drug therapy; X58.XXXA Exposure to other specified factors, initial encounter
CPT/HCPCS: 36415; 71045; 71260; 73600; 80053; 80069; 81001; 82728; 82947; 83605; 83735; 83880; 84145; 84484; 85014; 85018; 85025; 85379; 86141; 86704; 86708; 86803; 87077; 87086; 87186; 87340; 93005; 93010; 93970; 96374; 96375; 96376; 97110; 97162; 97166; 97530; 97535; 99285-25; A9270; J1100; J1650; J1885; J2185; J2405; J7030; J7050; Q9967; U0004

== ENCOUNTER 2021-07-05 06:12 | Emergency (ER) | payer OTHER ==
[~2021-07-05] VITALS: Ht 172.7 cm; Wt 59.0 kg
[~2021-07-05 06:12] MED LIST changes: +ELIQUIS5 M2 PO; +MULVITA PO; +Naproxen375 M1 PO; +OLANZAPINE PO
[2021-07-05 07:09] LABS: Alanine Aminotransfer (ALT/SGP 17 U/L (12-78); Albumin, Blood 3.9 g/dL (3.4-5.0); Albumin/Globulin Ratio 0.8 (0.8-1.8); Alk Phos 124 U/L (50-136); Anion Gap 9 mmol/L (6-16); Aspartate Aminotrans (AST/SGOT 34 U/L (12-37); Bilirubin, Total 0.9 mg/dL (0.1-1.0); Blood Urea Nitrogen 9 mg/dL (8-24); Bun/Creatinine Ratio 16.6 (12.0-20.0); CO2, Blood 27 mmol/L (21-32); Calcium, Blood 9.6 mg/dL (8.5-10.1); Chloride, Blood 102 mmol/L (98-108); Creatinine, Blood 0.54 mg/dL (0.40-1.00); Glomerular Filtration Rate >60 (60-); Glucose, Blood 103 mg/dL (70-99); Potassium, Blood 3.7 mmol/L (3.5-5.5); Sodium, Blood 138 mmol/L (136-145); Total Protein, Blood 8.9 g/dL (6.4-8.2); Troponin I <0.015 ng/mL (0.000-0.040)
[2021-07-05 07:21] LABS: BASOPHILS ABSOLUTE AUTO 0.12 K/mm3 (0.00-0.23); BASOPHILS PERCENT AUTO 1 % (0-2); EOSINOPHILS ABSOLUTE AUTO 0.06 K/mm3 (0.00-0.68); EOSINOPHILS PERCENT AUTO 0 % (0-6); Hematocrit 51.2 % (33.0-51.0); Hemoglobin 17.2 g/dL (11.5-16.0); IMMATURE GRAN ABSOLUTE AUTO 0.06 K/mm3 (0.00-0.10); IMMATURE GRAN PERCENT AUTO 0 % (0-1); LYMPHOCYTES ABSOLUTE AUTO 2.01 K/mm3 (0.84-5.20); LYMPHOCYTES PERCENT AUTO 13 % (21-46); MONOCYTES ABSOLUTE AUTO 1.13 K/mm3 (0.16-1.47); MONOCYTES PERCENT AUTO 8 % (4-13); Mean Corpuscular HGB 33.5 pg (26.0-34.0); Mean Corpuscular HGB Conc 33.6 g/dL (31.5-36.5); Mean Corpuscular Volume 100 fL (80-100); Mean Platelet Volume 9.2 fL (9.1-12.4); NEUTROPHILS ABSOLUTE AUTO 11.67 K/mm3 (1.96-9.15); NEUTROPHILS PERCENT AUTO 78 % (41-73); Platelet Count 381 K/mm3 (150-400); RDW Coefficient Variation 15.9 % (11.7-14.2); RDW Standard Deviation 57.4 fL (35.1-46.3); Red Blood Cell Count 5.13 M/mm3 (3.80-5.20); White Blood Cell Count 15.05 K/mm3 (4.00-11.30)
[2021-07-05 08:19] LABS: Source, Urine Clean Catch
[2021-07-05 08:29] LABS: Appearance, Urine Turbid (Clear); Bilirubin, Urine Neg (Neg); Blood, Urine 3+ (Neg); Color, Urine Yellow (P-Yellow); Glucose Qualitative, Urine Neg (Neg); Ketones, Urine Neg (Neg); Leukocyte Esterase, Urine 3+ (Neg); Nitrite, Urine Pos (Neg); Protein, Urine 3+ (Neg); Urobilinogen, Urine NORM (Normal)
[2021-07-05 08:38] LABS: Bacteria Many /hpf; White Blood Cells, Urine TNTC /hpf (0-5)
[2021-07-05 08:39] LABS: Squamous Epithelial Cells Not Seen /hpf (Few)
[2021-07-05] MEDS ORDERED: Norco 5-325 Ta1 EACH PO (10:06)
[2021-07-05] MEDS ORDERED: CEFD300 PO (10:06)
== END 2021-07-05 11:43 | disposition home or self-care (01) ==
LOC: ER 06:12
PROVIDERS: Emergency Medicine
DX: S42.032A Displaced fracture of lateral end of left clavicle, initial encounter for closed fracture (principal); N39.0 Urinary tract infection, site not specified; I10 Essential (primary) hypertension; W19.XXXA Unspecified fall, initial encounter
CPT/HCPCS: 29105; 36415; 71046; 73030; 80053; 81001; 84484; 85025; 87077; 87086; 87186; 93005; 93010; 96365; 99284-25; A9270; J0696; J7030

== ENCOUNTER 2021-10-04 18:30 | Emergency (ER) | payer OTHER ==
[~2021-10-04] VITALS: Ht 172.7 cm; Wt 52.2 kg
[~2021-10-04 18:30] MED LIST changes: +CEFD300 PO; +Norco 5-325 Ta1 EACH PO
[2021-10-04 19:15] LABS: Source, Urine Clean Catch
[2021-10-04 19:19] LABS: Bilirubin, Urine Neg (Neg); Blood, Urine 4+ (Neg); Glucose Qualitative, Urine Neg (Neg); Ketones, Urine Neg (Neg); Leukocyte Esterase, Urine 3+ (Neg); Nitrite, Urine Neg (Neg); Protein, Urine 3+ (Neg); Urobilinogen, Urine NORM (Normal)
[2021-10-04 19:25] LABS: Appearance, Urine Cloudy (Clear); Color, Urine Pale Yellow (P-Yellow)
[2021-10-04 19:26] LABS: Amorphous Mod (0-Heavy); Bacteria Few /hpf; Squamous Epithelial Cells Few /hpf (Few)
[2021-10-04 19:47] LABS: BASOPHILS ABSOLUTE AUTO 0.08 K/mm3 (0.00-0.23); BASOPHILS PERCENT AUTO 1 % (0-2); EOSINOPHILS ABSOLUTE AUTO 0.22 K/mm3 (0.00-0.68); EOSINOPHILS PERCENT AUTO 3 % (0-6); Hematocrit 42.9 % (33.0-51.0); Hemoglobin 14.9 g/dL (11.5-16.0); IMMATURE GRAN ABSOLUTE AUTO 0.01 K/mm3 (0.00-0.10); IMMATURE GRAN PERCENT AUTO 0 % (0-1); LYMPHOCYTES ABSOLUTE AUTO 2.64 K/mm3 (0.84-5.20); LYMPHOCYTES PERCENT AUTO 31 % (21-46); MONOCYTES ABSOLUTE AUTO 0.55 K/mm3 (0.16-1.47); MONOCYTES PERCENT AUTO 6 % (4-13); Mean Corpuscular HGB 37.2 pg (26.0-34.0); Mean Corpuscular HGB Conc 34.7 g/dL (31.5-36.5); Mean Corpuscular Volume 107 fL (80-100); NEUTROPHILS ABSOLUTE AUTO 5.14 K/mm3 (1.96-9.15); NEUTROPHILS PERCENT AUTO 60 % (41-73); Platelet Count 337 K/mm3 (150-400); RDW Coefficient Variation 20.6 % (11.7-14.2); RDW Standard Deviation 82.1 fL (35.1-46.3); Red Blood Cell Count 4.01 M/mm3 (3.80-5.20); White Blood Cell Count 8.64 K/mm3 (4.00-11.30)
[2021-10-04 20:08] LABS: Alanine Aminotransfer (ALT/SGP 13 U/L (12-78); Albumin, Blood 3.3 g/dL (3.4-5.0); Albumin/Globulin Ratio 0.8 (0.8-1.8); Alk Phos 139 U/L (50-136); Anion Gap 9 mmol/L (6-16); Aspartate Aminotrans (AST/SGOT 22 U/L (12-37); Bilirubin, Total 0.4 mg/dL (0.1-1.0); Blood Urea Nitrogen 5 mg/dL (8-24); Bun/Creatinine Ratio 10.1 (12.0-20.0); CO2, Blood 28 mmol/L (21-32); Calcium, Blood 9.4 mg/dL (8.5-10.1); Chloride, Blood 103 mmol/L (98-108); Ethanol (Alcohol), Blood, Med 244 mg/dL; Globulin, Blood 4.1 g/dL (2.2-4.0); Glomerular Filtration Rate >60 (60-); Glucose, Blood 110 mg/dL (70-99); Potassium, Blood 3.4 mmol/L (3.5-5.5); Sodium, Blood 140 mmol/L (136-145); Total Protein, Blood 7.4 g/dL (6.4-8.2)
== END 2021-10-04 23:03 | disposition home or self-care (01) ==
LOC: ER 18:30
PROVIDERS: Student in an Organized Health Care Education/Training Program
DX: S01.01XA Laceration without foreign body of scalp, initial encounter (principal); F10.129 Alcohol abuse with intoxication, unspecified; I10 Essential (primary) hypertension; Z88.5 Allergy status to narcotic agent; Z79.899 Other long term (current) drug therapy; W19.XXXA Unspecified fall, initial encounter
CPT/HCPCS: 12001; 36415; 70450; 72125; 80053; 81001; 85025; 87086; 96374; 96375; 99284-25; G0480; J0696; J2060